=== PATIENT | male | born 1985 | race Two or more races ===

== ENCOUNTER 2017-02-03 11:32 | Inpatient (IN) | payer OTHER ==
[2017-02-03 12:28] VITALS: BMI 25.0
--- NOTE | 2017-02-03 14:45 | HP ---
COWS - Scale Resting Pulse: 0= [place] 80 or Below Sweatin=Flushed/Facial Moisture Restless Observation: 3= Extraneous Movement Pupil Size: 2= Moderately Dilated Bone or Joint Aches: 2= Severe Diffuse Aches Runny Nose/ Eye Tearin= Runny Nose/Eyes GI Upset > 30mins: 3= Vomiting/Diarrhea Tremor Observation: 2= Slight Tremor Visible Yawning Observation: 2= >3x During Session Anxiety or Irritability: 2=Irritable/Anxious Goose Flesh Skin: 0=Smooth Skin COWS Score: 20 CIWA Score - CIWA Score Nausea/Vomitin Muscle Tremors: 3 Anxiety: 3 Agitation: 3 Paroxysmal Sweats: 2 Tacttile Disturbances: 2-Mild Itch/Numbness/Burn Auditory Disturbances: 2-Mild Harshness/Frighten Visual Disturbances: 2-Mild Sensitivity Headache: 2-Mild Admission ROS BHS - HPI Chief Complaint: I NEED HELP TO STOP USING HEROIN,XANAX,CANNABIS Allergies/Adverse Reactions: Allergies Allergy/AdvReac Type Severity Reaction Status Date / Time No Known Allergies Allergy Verified 02/03/17 12:57 History of Present Illness: THIS 31 YEARS OLD MALE WITH HEROIN,XANAX AND CANNABIS DEPENDENCE,SEEK HELP TO STOP USING,LAST DETOX 2011 [facility] STATED LAST USING SUBOXONE 3 WEEKS AGO LONGEST PERIOD OF SOBRIETY Exam Limitations: No Limitations - Ebola screening Have you traveled outside of the country in the last 21 days: No Have you had contact with anyone from an Ebola affected area: No Have you been sick,other than usual withdrawal symptoms: No Do you have a fever: No - Review of Systems Constitutional: Chills, Diaphoresis, Loss of Appetite, Malaise, Night Sweats, Changes in sleep, Weakness, Unintentional Wgt. Loss EENT: reports: Tearing, Nose Congestion Respiratory: reports: No Symptoms reported Cardiac: reports: Palpitations GI: reports: Diarrhea, Nausea, Vomiting, Abdominal cramping : reports: No Symptoms Reported Musculoskeletal: reports: Back Pain, Joint Pain, Muscle Pain, Joint Stiffness Integumentary: reports: Dryness Neuro: reports: Headache, Tremors Endocrine: reports: No Symptoms Reported Hematology: reports: No Symptoms Reported Psychiatric: reports: Anxious, Depressed Other Systems: Reviewed and Negative Patient History - Patient Medical History Hx Anemia: No Hx Asthma: Yes (ON ALBUTEROL INHALER) Hx Chronic Obstructive Pulmonary Disease (COPD): No Hx Cancer: No Hx Cardiac Disorders: No Hx Congestive Heart Failure: No Hx Hypertension: No Hx Hypercholesterolemia: No Hx Pacemaker: No HX Cerebrovascular Accident: No Hx Seizures: No Hx Dementia: No Hx Diabetes: No Hx Gastrointestinal Disorders: No Hx Liver Disease: No Hx Genitourinary Disorders: No Hx Sexually Transmitted Disorders: No Hx Renal Disease (ESRD): No Hx Thyroid Disease: No Hx Human Immunodeficiency Virus (HIV): No (LAST 09/14 NEGATIVE) Hx Hepatitis C: No Hx Depression: Yes (ANXIETY) Hx Suicide Attempt: No Hx Bipolar Disorder: No Hx Schizophrenia: No Other Medical History: NOSUICIDAL.,NO HOMICIDAL - Patient Surgical History Past Surgical History: No Hx Orthopedic Surgery: Yes (SURGERY FOR FX LEFT COLLAR BONE AT AGE OF 23) - PPD History Previous Implant?: Yes Documented Results: Negative w/o proof Implanted On Prior [facility] Admission?: No PPD to be Administered?: Yes - Smoking Cessation Smoking history: Current every day smoker Have you smoked in the past 12 months: Yes Aproximately how many cigarettes per day: 10 Hx Chewing Tobacco Use: No Initiated information on smoking cessation: Yes 'Breaking Loose' booklet given: 02/03/17 - Substance & Tx. History Hx Alcohol Use: No Hx Substance Use: Yes Substance Use Type: Heroin, Marijuana, Tranquilizers - Substances Abused Heroin Route: Injection Frequency: Daily Amount used: 3-10 bags Age of first use: 16 Date of Last Use: 02/02/17 Marijuana/Hashish Frequency: Daily Amount used: 2 blunts Age of first use: 10 Date of Last Use: 02/02/17 Alprazolam (Xanax) Route: Oral Frequency: Daily Amount used: 4 MGS Age of first use: 18 Date of Last Use: 01/31/17 K2 Route: Smoking Frequency: 1-2 times per week Amount used: 10$ Age of first use: 25 Date of Last Use: 02/02/17 Family Disease History - Family Disease History Family History: Denies Family Disease History: [place]: Mother, Other: Father (DSA OVERDOSE) Admission Physical Exam BHS - Vital Signs Vital Signs: Vital Signs - 24 hr 02/03/17 12:23 Temperature 96.4 F L Pulse Rate 80 Respiratory 18 Rate Blood Pressure 95/68 - Physical General Appearance: Yes: Moderate Distress, Tremorous, Irritable, Sweating, Anxious HEENTM: Yes: Normal ENT Inspection, JOSE LUIS, Nasal Congestion Respiratory: Yes: Lungs Clear, Normal Breath Sounds, No Respiratory Distress Neck: Yes: Within Normal Limits, Supple, Trachea in good position Breast: Yes: Within Normal Limits Cardiology: Yes: Within Normal Limits, Regular Rhythm, Regular Rate, S1, S2 Abdominal: Yes: Within Normal Limits, Normal Bowel Sounds, Non Tender, Flat, Soft Genitourinary: Yes: Within Normal Limits Back: Yes: Muscle Spasm Extremities: Yes: Normal Inspection, Normal Range of Motion, Tremors Neurological: Yes: healthcare or medical II-XII NML intact, Alert, Motor Strength 5/5 Integumentary: Yes: Dry Lymphatic: Yes: Within Normal Limits - Diagnostic (1) Opioid dependence Current Visit: Yes Status: Acute (2) Uncomplicated sedative, hypnotic or anxiolytic withdrawal Current Visit: Yes Status: Acute (3) Asthma Current Visit: Yes Status: Acute (4) Cannabis dependence Current Visit: Yes Status: Acute (5) Anxiety and depression Current Visit: Yes Status: Acute (6) Weight loss Current Visit: Yes Status: Acute (7) Fracture of left clavicle Current Visit: Yes Status: Acute Cleared for Admission [facility] - Detox or Rehab [facility] Level of Care: Medically Managed Detox Regimen/Protocol: Methadone [facility] Breath Alcohol Content Breath Alcohol Content: 0 Urine Drug Screen - Results Drug Screen Negative: No Urine Drug Screen Results: THC-Marijuana, NO-Cocaine, OPI-Opiates, PCP- Phencyclidine
[2017-02-03] MEDS ORDERED: LOPERAMIDE HCL 2 MG CAPSULE PO PRN (14:59)
[2017-02-03] MEDS ORDERED: MAGNESIUM CITRATE 300 ML BOTTLE PO PRN (14:59)
[2017-02-03] MEDS ORDERED: IBUPROFEN 400 MG TABLET (FP) PO PRN (14:59)
[2017-02-03] MEDS ORDERED: P-EPHED 60MG/TRIPROLIDI 2.5MG TABLET PO PRN (14:59)
[2017-02-03] MEDS ORDERED: MAG HYDROX/AL HYDROX/SIMETH 30 ML UNIT-DOSE CUP PO PRN (14:59)
[2017-02-03] MEDS ORDERED: MAGNESIUM HYDROX 2400MG/30ML ORAL SUSPENSION 30 ML CUP PO PRN (14:59)
[2017-02-03] MEDS ORDERED: guaiFENesin/D-METHORPHAN HB 10 ML UNIT-DOSE CUPS PO PRN (14:59)
[2017-02-03] MEDS ORDERED: NICOTINE POLACRILEX 2 MG GUM BUC PRN (14:59)
[2017-02-03] MEDS ORDERED: MENTHOL/PHENOL 1 EACH UD MM PRN (14:59)
[2017-02-03] MEDS ORDERED: ALBUTEROL SO4 6.7 GM HFA INHALER IH PRN (15:02)
[2017-02-03] MEDS ORDERED: METHADONE HCL 10 MG TABLET (FOR DETOX USE ONLY) PO ONE ×2 (15:06→23:00)
[2017-02-03] MEDS: diazePAM 5 MG TABLET PO PRN ×2 (15:47→22:46)
[2017-02-03] MEDS: NICOTINE 21 MG/24 HOURS TOPICAL PATCH TD SCH (15:48)
--- NOTE | 2017-02-03 16:14 | CONSULT ---
[facility] Psychiatric Consult - Data Date of interview: 02/03/17 Admission source: [facility] Identifying data: This is 31 years old male with no psychiatric hospitalization history ointoxicated with : Op[ioids, Cannabis, Xanax, Cocaine and PCP Substance Abuse History: Smoking history: Current every day smoker. Have you smoked in the past 12 months: Yes. Aproximately how many cigarettes per day: 10. Hx Chewing Tobacco Use: No. Initiated information on smoking cessation: Yes. 'Breaking Loose' booklet given: 02/03/17. - Substance & Tx. History. Hx Alcohol Use: No. Hx Substance Use: Yes. Substance Use Type: Heroin, Marijuana , Tranquilizers. - Substances Abused. Heroin. Route: Injection. Frequency : Daily. Amount used: 3-10 bags. Age of first use: 16. Date of Last Use: 03/14. Marijuana/Hashish. Frequency: Daily. Amount used: 2 blunts. Age of first use: 10. Date of Last Use: 02/02/17. Alprazolam (Xanax). Route: Oral. Frequency: Daily. Amount used: 4 MGS. Age of first use: 18. Date of Last Use: 01/31/17. K2. Route: Smoking. Frequency: 1-2 times per week. Amount used: 10$. Age of first use: 25. Date of Last Use: 02/02/17 Medical History: Asthma, Weight loss history Psychiatric History: Patient denies past psychiatric history, as per computer there is ahistory of anxiety and depression, history of taking Abilify 5mg poqd Physical/Sexual Abuse/Trauma History: Denies Additional Comment: Refusing medications. Observation. Detox Unit Care Protocol Mental Status Exam - Mental Status Exam Alert and Oriented to: Person Cognitive Function: Fair Patient Appearance: Well Groomed Mood: Suspicious, Anxious Affect: Constricted Patient Behavior: Cooperative, Agitated Speech Pattern: Appropriate Voice Loudness: Mildly Soft/Quiet Thought Process: Goal Oriented Thought Disorder: Being Controlled Hallucinations: Denies Suicidal Ideation: Denies Homicidal Ideation: Denies Insight/Judgement: Fair Sleep: Difficulty falling asleep Appetite: Weight loss Muscle strength/Tone: Normal Gait/Station: Normal Additional Comments: Refusing medications. Observation. Detox Unit Care Protocol Psychiatric Findings - Problem List ([place] 1, 2,3) (1) Anxiety and depression Current Visit: Yes Status: Acute (2) Cannabis dependence Current Visit: Yes Status: Acute (3) Opioid dependence Current Visit: Yes Status: Acute (4) Uncomplicated sedative, hypnotic or anxiolytic withdrawal Current Visit: Yes Status: Acute (5) PCP (phencyclidine) abuse Current Visit: Yes Status: Acute (6) Cocaine abuse Current Visit: Yes Status: Acute (7) Drug-induced mood disorder Current Visit: Yes Status: Acute - Initial Treatment Plan Initial Treatment Plan: Refusing medications. Observation. Detox Unit Care Protocol
[2017-02-03 21:13] LABS: URINE APPEARANCE CLEAR; URINE BILIRUBIN NEGATIVE (NEGATIVE); URINE BLOOD NEGATIVE (NEGATIVE); URINE COLOR YELLOW; URINE GLUCOSE (UA) NEGATIVE (NEGATIVE); URINE KETONE NEGATIVE (NEGATIVE); URINE LEUK ESTERASE NEGATIVE (NEGATIVE); URINE NITRITE NEGATIVE (NEGATIVE); URINE PROTEIN NEGATIVE (NEGATIVE); URINE UROBILINOGEN NEGATIVE E.U./dl (0.2-1.0)
[2017-02-03] MEDS: diphenhydrAMINE HCL 50 MG CAPSULE PO PRN (22:43)
[2017-02-03] MEDS: THIAMINE HCL 100 MG TABLET (FP) PO SCH (22:43)
[2017-02-04] MEDS: diazePAM 5 MG TABLET PO PRN ×3 (06:09→18:41)
[2017-02-04 09:48] LABS: MCH 22.9 pg (25.7-33.7); MCHC 31.8 g/dl (32.0-35.9); MEAN PLT VOLUME 8.9 fl (7.5-11.1); PLATELET COUNT 207 K/MM3 (134-434); RDW 14.8 % (11.9-15.9); WHITE BLOOD COUNT 3.9 K/mm3 (4.0-10.0)
[2017-02-04] MEDS ORDERED: METHADONE HCL 10 MG TABLET (FOR DETOX USE ONLY) PO ONE (10:00)
[2017-02-04 10:13] LABS: ALBUMIN 4.2 g/dl (3.4-5.0); ALK PHOS 67 U/L (45-117); ANION GAP 7 (8-16); BILIRUBIN,TOTAL 0.6 mg/dL (0.2-1.0); CALCIUM 9.8 mg/dL (8.5-10.1); CO2 31 mmol/L (21-32); COCKROFT - GAULT 118.61; CREATININE 1.1 mg/dL (0.7-1.3); GLUCOSE,RANDOM 95 mg/dL (74-106); SGOT/AST 18 U/L (15-37); SGPT/ALT 21 U/L (12-78); TOT PROT 7.3 g/dl (6.4-8.2)
--- NOTE | 2017-02-04 10:19 | EKG ---
Test Reason : Blood Pressure : / mmHG Vent. Rate : 052 BPM Atrial Rate : 052 BPM P-R Int : 156 ms QRS Dur : 094 ms QT Int : 438 ms P-R-T Axes : 056 081 057 degrees QTc Int : 407 ms SINUS BRADYCARDIA WITH SINUS ARRHYTHMIA OTHERWISE NORMAL ECG NO PREVIOUS ECGS AVAILABLE Confirmed by CHEMA GUEVARA MD ([id number]) on 02/04/2017 10:18:40 AM Referred By: Confirmed By:CHEMA GUEVARA MD
[2017-02-04] MEDS: PRENATAL VITAMINS W/ FOLIC ACID TABLET (FP) PO SCH (10:35)
[2017-02-04] MEDS: NICOTINE 21 MG/24 HOURS TOPICAL PATCH TD SCH (10:35)
[2017-02-04] MEDS ORDERED: ONDANSETRON *ODT* 4 MG TABLET SL PRN (13:12)
[2017-02-04] MEDS ORDERED: ONDANSETRON *ODT* 4 MG TABLET SL ONE (14:00)
--- NOTE | 2017-02-04 14:55 | PN ---
BHS COWS - Scale Resting Pulse: 0= [place] 80 or Below Sweatin=Flushed/Facial Moisture Restless Observation: 1= Difficult to Sit Still Pupil Size: 0= Normal to Room Light Bone or Joint Aches: 2= Severe Diffuse Aches Runny Nose/ Eye Tearin= Runny Nose/Eyes GI Upset > 30mins: 2= Nausea/Diarrhea Tremor Observation of Outstretched Hands: 2= Slight Tremor Visible Yawning Observation: 1= 1-2x During Session Anxiety or Irritability: 2=Irritable/Anxious Goose Flesh Skin: 0=Smooth Skin COWS Score: 14 BHS Progress Note (SOAP) Subjective: Anxiety,tremors,sweating,nausea,body aches,interrupted sleep. Objective: 02/04/17 14:54 Vital Signs - 8 hr 02/04/17 02/04/17 10:35 10:38 Temperature 98.3 F 98.3 F Pulse Rate 72 72 Respiratory 18 18 Rate Blood Pressure 121/79 121/79 Laboratory Tests 02/03/17 02/04/17 02/04/17 20:30 06:00 06:00 WBC 3.9 L RBC 5.68 H Hgb 13.0 Hct 40.9 MCV 72.0 L MCHC 31.8 L RDW 14.8 Plt Count 207 MPV 8.9 Sodium 142 Potassium 4.2 Chloride 104 Carbon Dioxide 31 Anion Gap 7 L BUN 20 H Creatinine 1.1 Creat Clearance w eGFR > 60 Random Glucose 95 Calcium 9.8 Total Bilirubin 0.6 AST 18 ALT 21 Alkaline Phosphatase 67 Total Protein 7.3 Albumin 4.2 Urine Color Yellow Urine Appearance Clear Urine pH 6.0 Ur Specific [place] 1.025 Urine Protein Negative Urine Glucose (UA) Negative Urine Ketones Negative Urine Blood Negative Urine Nitrite Negative Urine Bilirubin Negative Urine Urobilinogen Negative Ur Leukocyte Esterase Negative RPR Titer 02/04/17 06:00 WBC RBC Hgb Hct MCV MCHC RDW Plt Count MPV Sodium Potassium Chloride Carbon Dioxide Anion Gap BUN Creatinine Creat Clearance w eGFR Random Glucose Calcium Total Bilirubin AST ALT Alkaline Phosphatase Total Protein Albumin Urine Color Urine Appearance Urine pH Ur Specific [place] Urine Protein Urine Glucose (UA) Urine Ketones Urine Blood Urine Nitrite Urine Bilirubin Urine Urobilinogen Ur Leukocyte Esterase RPR Titer Nonreactive labs noted Assessment: 02/04/17 14:54 Withdrawal sx. Plan: Continue detox
[2017-02-04] MEDS: ACETAMINOPHEN 325 MG TABLET (FP) PO PRN (20:05)
[2017-02-04] MEDS: THIAMINE HCL 100 MG TABLET (FP) PO SCH (22:32)
[2017-02-05] MEDS: diazePAM 5 MG TABLET PO PRN ×3 (05:34→22:15)
[2017-02-05] MEDS: ACETAMINOPHEN 325 MG TABLET (FP) PO PRN ×3 (05:35→23:05)
[2017-02-05] MEDS ORDERED: METHADONE HCL 5 MG TABLET (FOR DETOX USE ONLY) PO ONE (10:00)
[2017-02-05] MEDS: NICOTINE 21 MG/24 HOURS TOPICAL PATCH TD SCH (10:23)
[2017-02-05] MEDS: PRENATAL VITAMINS W/ FOLIC ACID TABLET (FP) PO SCH (10:23)
--- NOTE | 2017-02-05 19:23 | PN ---
S CIWA - CIWA Score Nausea/Vomitin Muscle Tremors: 4-Moderate,w/Arms Extend Anxiety: 2 Agitation: 0-Normal Activity Paroxysmal Sweats: No Perspiration Orientation: 2-Disoriented Date<2 days Tacttile Disturbances: 0-None Auditory Disturbances: 0-None Visual Disturbances: 2-Mild Sensitivity Headache: 2-Mild CIWA-Ar Total Score: 17 BHS COWS - Scale Resting Pulse: 0= [place] 80 or Below Sweatin=Flushed/Facial Moisture Restless Observation: 0= Sits Still Pupil Size: 0= Normal to Room Light Bone or Joint Aches: 2= Severe Diffuse Aches Runny Nose/ Eye Tearin= Nasal Congestion GI Upset > 30mins: 3= Vomiting/Diarrhea Tremor Observation of Outstretched Hands: 2= Slight Tremor Visible Yawning Observation: 2= >3x During Session Anxiety or Irritability: 2=Irritable/Anxious Goose Flesh Skin: 0=Smooth Skin COWS Score: 14 [facility] Progress Note (SOAP) Subjective: Vomiting, Stomach Cramping, Interrupted Sleep, Tremors, Body Aches. Objective: PT. A & O X 2 (DISORIENTED ABOUT DAY DATE). NO ACUTE DISTRESS. 02/05/17 19:21 Vital Signs Temperature 98.2 F 02/05/17 13:08 Pulse Rate 53 L 02/05/17 13:08 Respiratory Rate 18 02/05/17 13:08 Blood Pressure 110/72 02/05/17 13:08 O2 Sat by Pulse Oximetry (%) Laboratory Tests 02/03/17 02/04/17 02/04/17 20:30 06:00 06:00 WBC 3.9 L RBC 5.68 H Hgb 13.0 Hct 40.9 MCV 72.0 L MCHC 31.8 L RDW 14.8 Plt Count 207 MPV 8.9 Sodium 142 Potassium 4.2 Chloride 104 Carbon Dioxide 31 Anion Gap 7 L BUN 20 H Creatinine 1.1 Creat Clearance w eGFR > 60 Random Glucose 95 Calcium 9.8 Total Bilirubin 0.6 AST 18 ALT 21 Alkaline Phosphatase 67 Total Protein 7.3 Albumin 4.2 Urine Color Yellow Urine Appearance Clear Urine pH 6.0 Ur Specific [place] 1.025 Urine Protein Negative Urine Glucose (UA) Negative Urine Ketones Negative Urine Blood Negative Urine Nitrite Negative Urine Bilirubin Negative Urine Urobilinogen Negative Ur Leukocyte Esterase Negative RPR Titer 02/04/17 06:00 WBC RBC Hgb Hct MCV MCHC RDW Plt Count MPV Sodium Potassium Chloride Carbon Dioxide Anion Gap BUN Creatinine Creat Clearance w eGFR Random Glucose Calcium Total Bilirubin AST ALT Alkaline Phosphatase Total Protein Albumin Urine Color Urine Appearance Urine pH Ur Specific [place] Urine Protein Urine Glucose (UA) Urine Ketones Urine Blood Urine Nitrite Urine Bilirubin Urine Urobilinogen Ur Leukocyte Esterase RPR Titer Nonreactive LABS NOTED. Assessment: 02/05/17 19:22 WITHDRAWAL SYMPTOMS. Plan: CONTINUE DETOX.
[2017-02-05] MEDS: THIAMINE HCL 100 MG TABLET (FP) PO SCH (22:15)
[2017-02-05] MEDS: diphenhydrAMINE HCL 50 MG CAPSULE PO PRN (22:15)
[2017-02-06] MEDS: diazePAM 5 MG TABLET PO PRN (05:56)
[2017-02-06] MEDS: ACETAMINOPHEN 325 MG TABLET (FP) PO PRN ×2 (05:57→22:14)
[2017-02-06] MEDS ORDERED: METHADONE HCL 5 MG TABLET (FOR DETOX USE ONLY) PO ONE (10:00)
[2017-02-06] MEDS: PRENATAL VITAMINS W/ FOLIC ACID TABLET (FP) PO SCH (10:08)
[2017-02-06] MEDS: NICOTINE 21 MG/24 HOURS TOPICAL PATCH TD SCH (10:08)
[2017-02-06] MEDS: CYCLOBENZAPRINE HCL 10 MG TABLET (FP) PO PRN ×2 (10:10→22:14)
[2017-02-06] MEDS ORDERED: TRIMETHOBENZAMIDE HCL 200MG/2ML INJ IM ONE (10:21)
--- NOTE | 2017-02-06 15:22 | PN ---
BHS Progress Note (SOAP) Subjective: Back spasm, nausea, vomiting (vomited x 4 in garbage this AM as per patient), anxious, restless, interrupted sleep Objective: 02/06/17 15:19 Last Vital Signs Temp Pulse Resp BP Pulse Ox 98.7 F 66 18 120/77 02/06/17 09:52 02/06/17 09:52 02/06/17 09:52 02/06/17 09:52 Laboratory Tests 02/03/17 02/04/17 02/04/17 20:30 06:00 06:00 WBC 3.9 L RBC 5.68 H Hgb 13.0 Hct 40.9 MCV 72.0 L MCHC 31.8 L RDW 14.8 Plt Count 207 MPV 8.9 Sodium 142 Potassium 4.2 Chloride 104 Carbon Dioxide 31 Anion Gap 7 L BUN 20 H Creatinine 1.1 Creat Clearance w eGFR > 60 Random Glucose 95 Calcium 9.8 Total Bilirubin 0.6 AST 18 ALT 21 Alkaline Phosphatase 67 Total Protein 7.3 Albumin 4.2 Urine Color Yellow Urine Appearance Clear Urine pH 6.0 Ur Specific [place] 1.025 Urine Protein Negative Urine Glucose (UA) Negative Urine Ketones Negative Urine Blood Negative Urine Nitrite Negative Urine Bilirubin Negative Urine Urobilinogen Negative Ur Leukocyte Esterase Negative RPR Titer 02/04/17 06:00 WBC RBC Hgb Hct MCV MCHC RDW Plt Count MPV Sodium Potassium Chloride Carbon Dioxide Anion Gap BUN Creatinine Creat Clearance w eGFR Random Glucose Calcium Total Bilirubin AST ALT Alkaline Phosphatase Total Protein Albumin Urine Color Urine Appearance Urine pH Ur Specific [place] Urine Protein Urine Glucose (UA) Urine Ketones Urine Blood Urine Nitrite Urine Bilirubin Urine Urobilinogen Ur Leukocyte Esterase RPR Titer Nonreactive Labs noted Assessment: 02/06/17 15:20 Withdrawal symptoms Plan: Continue detox, tigan 200mg IM x 1 for persistent vomiting, encouraged to drink more water, water pitcher ordered, flexeril 10mg PO TID PRN muscle spasm
[2017-02-06] MEDS: diphenhydrAMINE HCL 50 MG CAPSULE PO PRN (22:13)
[2017-02-06] MEDS: THIAMINE HCL 100 MG TABLET (FP) PO SCH (22:13)
[2017-02-07] MEDS: ACETAMINOPHEN 325 MG TABLET (FP) PO PRN ×3 (05:58→22:23)
[2017-02-07] MEDS: CYCLOBENZAPRINE HCL 10 MG TABLET (FP) PO PRN ×2 (05:58→22:24)
[2017-02-07] MEDS ORDERED: METHADONE HCL 10 MG TABLET (FOR DETOX USE ONLY) PO ONE (10:00)
[2017-02-07] MEDS: PRENATAL VITAMINS W/ FOLIC ACID TABLET (FP) PO SCH (10:15)
[2017-02-07] MEDS: NICOTINE 21 MG/24 HOURS TOPICAL PATCH TD SCH (10:15)
--- NOTE | 2017-02-07 14:07 | PN ---
BHS Progress Note (SOAP) Subjective: Sweating,interrupted sleep,restless. Objective: 02/07/17 14:06 Vital Signs - 8 hr 02/07/17 02/07/17 02/07/17 06:22 09:42 13:40 Temperature 97.6 F 96.6 F L 97.8 F Pulse Rate 57 L 69 77 Respiratory 18 18 18 Rate Blood Pressure 121/82 122/79 109/71 Laboratory Tests 02/03/17 02/04/17 02/04/17 20:30 06:00 06:00 WBC 3.9 L RBC 5.68 H Hgb 13.0 Hct 40.9 MCV 72.0 L MCHC 31.8 L RDW 14.8 Plt Count 207 MPV 8.9 Sodium 142 Potassium 4.2 Chloride 104 Carbon Dioxide 31 Anion Gap 7 L BUN 20 H Creatinine 1.1 Creat Clearance w eGFR > 60 Random Glucose 95 Calcium 9.8 Total Bilirubin 0.6 AST 18 ALT 21 Alkaline Phosphatase 67 Total Protein 7.3 Albumin 4.2 Urine Color Yellow Urine Appearance Clear Urine pH 6.0 Ur Specific [place] 1.025 Urine Protein Negative Urine Glucose (UA) Negative Urine Ketones Negative Urine Blood Negative Urine Nitrite Negative Urine Bilirubin Negative Urine Urobilinogen Negative Ur Leukocyte Esterase Negative RPR Titer 02/04/17 06:00 WBC RBC Hgb Hct MCV MCHC RDW Plt Count MPV Sodium Potassium Chloride Carbon Dioxide Anion Gap BUN Creatinine Creat Clearance w eGFR Random Glucose Calcium Total Bilirubin AST ALT Alkaline Phosphatase Total Protein Albumin Urine Color Urine Appearance Urine pH Ur Specific [place] Urine Protein Urine Glucose (UA) Urine Ketones Urine Blood Urine Nitrite Urine Bilirubin Urine Urobilinogen Ur Leukocyte Esterase RPR Titer Nonreactive labs noted Assessment: 02/07/17 14:06 Withdrawal sx. Plan: Continue detox
[2017-02-07] MEDS: diphenhydrAMINE HCL 50 MG CAPSULE PO PRN (22:23)
[2017-02-07] MEDS: THIAMINE HCL 100 MG TABLET (FP) PO SCH (22:23)
[2017-02-08] MEDS: CYCLOBENZAPRINE HCL 10 MG TABLET (FP) PO PRN (05:58)
[2017-02-08] MEDS: ACETAMINOPHEN 325 MG TABLET (FP) PO PRN (05:59)
[2017-02-08] MEDS ORDERED: METHADONE HCL 5 MG TABLET (FOR DETOX USE ONLY) PO ONE (06:00)
[2017-02-08 09:30] VITALS: BP 123/78; PULSE 60; TEMP 97.1
--- NOTE | 2017-02-08 11:14 | DS ---
[facility] Detox Discharge Summary Admission Date: 02/03/17 Discharge Date: 02/08/17 - History Present History: Alcohol Dependence, Opioid Dependence, Sedative Dependence, Pcp Dependence Additional Comments: DETOX COMPLETED.ALERT O X 3. NAD. Pertinent Past History: ASTHMA FX LEFT CLAVICLE WT LOSS - Physical Exam Results Vital Signs: Vital Signs Temperature 97.1 F L 02/08/17 09:29 Pulse Rate 60 02/08/17 09:29 Respiratory Rate 18 02/08/17 09:29 Blood Pressure 123/78 02/08/17 09:29 O2 Sat by Pulse Oximetry (%) Pertinent Admission Physical Exam Findings: WITHDRAWAL SX Laboratory Last Values WBC 3.9 K/mm3 (4.0-10.0) L 02/04/17 06:00 RBC 5.68 M/mm3 (4.00-5.60) H 02/04/17 06:00 Hgb 13.0 GM/dL (11.7-16.9) 02/04/17 06:00 Hct 40.9 % (35.4-49) 02/04/17 06:00 MCV 72.0 fl (80-96) L 02/04/17 06:00 MCHC 31.8 g/dl (32.0-35.9) L 02/04/17 06:00 RDW 14.8 % (11.9-15.9) 02/04/17 06:00 Plt Count 207 K/MM3 (134-434) 02/04/17 06:00 MPV 8.9 fl (7.5-11.1) 02/04/17 06:00 Sodium 142 mmol/L (136-145) 02/04/17 06:00 Potassium 4.2 mmol/L (3.5-5.1) 02/04/17 06:00 Chloride 104 mmol/L (98-107) 02/04/17 06:00 Carbon Dioxide 31 mmol/L (21-32) 02/04/17 06:00 Anion Gap 7 (8-16) L 02/04/17 06:00 BUN 20 mg/dL (7-18) H 02/04/17 06:00 Creatinine 1.1 mg/dL (0.7-1.3) 02/04/17 06:00 Creat Clearance w eGFR > 60 (>60) 02/04/17 06:00 Random Glucose 95 mg/dL (74-106) 02/04/17 06:00 Calcium 9.8 mg/dL (8.5-10.1) 02/04/17 06:00 Total Bilirubin 0.6 mg/dL (0.2-1.0) 02/04/17 06:00 AST 18 U/L (15-37) 02/04/17 06:00 ALT 21 U/L (12-78) 02/04/17 06:00 Alkaline Phosphatase 67 U/L (45-117) 02/04/17 06:00 Total Protein 7.3 g/dl (6.4-8.2) 02/04/17 06:00 Albumin 4.2 g/dl (3.4-5.0) 02/04/17 06:00 Urine Color Yellow 02/03/17 20:30 Urine Appearance Clear 02/03/17 20:30 Urine pH 6.0 (5.0-8.0) 02/03/17 20:30 Ur Specific [place] 1.025 (1.005-1.025) 02/03/17 20:30 Urine Protein Negative (NEGATIVE) 02/03/17 20:30 Urine Glucose (UA) Negative (NEGATIVE) 02/03/17 20:30 Urine Ketones Negative (NEGATIVE) 02/03/17 20:30 Urine Blood Negative (NEGATIVE) 02/03/17 20:30 Urine Nitrite Negative (NEGATIVE) 02/03/17 20:30 Urine Bilirubin Negative (NEGATIVE) 02/03/17 20:30 Urine Urobilinogen Negative E.U./dl (0.2-1.0) 02/03/17 20:30 Ur Leukocyte Esterase Negative (NEGATIVE) 02/03/17 20:30 RPR Titer Nonreactive (NONREACTIVE) 02/04/17 06:00 - Treatment Hospital Course: Detox Protocol Followed, Detoxed Safely, Responded well, Discharged Condition Good Patient has Accepted a Rehab Referral to: PT REFUSED BUT HAS ALTERNATE CHOICE- [facility] - Medication Discharge Medications: Ambulatory Orders Albuterol Sulfate Inhaler - [Ventolin Hfa Inhaler -] 2 inh PO Q4H PRN 02/03/17 Aripiprazole [Abilify -] 5 mg PO DAILY 02/03/17 Buprenorphine HCl/Naloxone HCl [Suboxone 8 mg-2 mg Sl Tablets] 1.5 each SL DAILY 02/03/17 Clonazepam [Klonopin] 1 mg PO HS 02/03/17 - Diagnosis (1) Asthma Status: Chronic Qualifiers: Asthma severity: mild intermittent Asthma complication type: uncomplicated Qualified Code(s): J45.20 - Mild intermittent asthma, uncomplicated (2) Drug-induced mood disorder Status: Acute (3) Cannabis dependence Status: Acute (4) PCP (phencyclidine) abuse Status: Acute (5) Weight loss Status: Acute (6) Opioid dependence with withdrawal Status: Acute - AMA Did Patient Leave Against Medical Advice: No
== END 2017-02-08 09:20 | disposition home or self-care (01) | DRG 773 ==
LOC: YASAS 11:32 → Y3N 13:59
PROVIDERS: ADMIT Internal Medicine; ATTEND Internal Medicine
PROC: HZ2ZZZZ Detoxification Services for Substance Abuse Treatment (ICD-10-PCS; principal; 2017-02-03)
DX: F11.23 Opioid dependence with withdrawal (principal); F13.230 Sedative, hypnotic or anxiolytic dependence with withdrawal, uncomplicated; F12.20 Cannabis dependence, uncomplicated; F16.10 Hallucinogen abuse, uncomplicated; F14.10 Cocaine abuse, uncomplicated; F41.8 Other specified anxiety disorders; F19.24 Other psychoactive substance dependence with psychoactive substance-induced mood disorder; J45.20 Mild intermittent asthma, uncomplicated; Z87.898 Personal history of other specified conditions
CPT/HCPCS: 36415; 80053; 81003; 85027; 86593; 93005; 93010

== ENCOUNTER 2018-01-02 19:51 | Inpatient (IN) | payer OTHER ==
[2018-01-02 19:59] VITALS: BMI 23.1
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
[2018-01-03] MEDS ORDERED: MAGNESIUM CITRATE 300 ML BOTTLE PO PRN (00:40)
[2018-01-03] MEDS ORDERED: MAG HYDROX/AL HYDROX/SIMETH 30 ML UNIT-DOSE CUP PO PRN (00:40)
[2018-01-03] MEDS ORDERED: NICOTINE POLACRILEX 2 MG GUM BC PRN (00:40)
[2018-01-03] MEDS ORDERED: LOPERAMIDE HCL 2 MG CAPSULE PO PRN (00:40)
[2018-01-03] MEDS ORDERED: ACETAMINOPHEN 325 MG TABLET (FP) PO PRN (00:40)
[2018-01-03] MEDS ORDERED: MAGNESIUM HYDROX 2400MG/30ML ORAL SUSPENSION 30 ML CUP PO PRN (00:40)
[2018-01-03] MEDS ORDERED: IBUPROFEN 400 MG TABLET (FP) PO PRN (00:40)
[2018-01-03] MEDS ORDERED: P-EPHED 60MG/TRIPROLIDI 2.5MG TABLET PO PRN (00:40)
[2018-01-03] MEDS ORDERED: METHADONE HCL 10 MG TABLET (FOR DETOX USE ONLY) PO ONE ×2 (00:40→23:00)
[2018-01-03] MEDS ORDERED: diazePAM 5 MG TABLET PO ONE (00:40)
[2018-01-03] MEDS ORDERED: MENTHOL/PHENOL 1 EACH UD MM PRN (00:40)
[2018-01-03] MEDS ORDERED: guaiFENesin/D-METHORPHAN HB 10 ML UNIT-DOSE CUPS PO PRN (00:40)
[2018-01-03] MEDS ORDERED: diazePAM 5 MG TABLET PO PRN (00:40)
[2018-01-03] MEDS: diazePAM 5 MG TABLET PO SCH ×2 (05:35→13:55)
[2018-01-03] MEDS ORDERED: METHADONE HCL 40 MG DISPERSABLE TABLET PO SCH (09:15)
[2018-01-03 09:51] LABS: URINE APPEARANCE CLEAR; URINE BILIRUBIN NEGATIVE (<2.0 mg/dL); URINE COLOR YELLOW; URINE GLUCOSE (UA) NEGATIVE (NEGATIVE); URINE KETONE NEGATIVE (NEGATIVE); URINE LEUK ESTERASE TRACE (NEGATIVE); URINE NITRITE NEGATIVE (NEGATIVE); URINE PROTEIN NEGATIVE (NEGATIVE); URINE UROBILINOGEN 4.0 E.U/dl mg/dL (0.2-1.0)
[2018-01-03 09:54] LABS: HEMATOCRIT 36.3 % (35.4-49); HEMOGLOBIN 11.9 GM/dL (11.7-16.9); MCH 23.6 pg (25.7-33.7); MCHC 32.8 g/dl (32.0-35.9); MEAN CELL VOLUME 71.8 fl (80-96); MEAN PLT VOLUME 9.1 fl (7.5-11.1); PLATELET COUNT 211 K/MM3 (134-434); RBC 5.05 M/mm3 (4.00-5.60); RDW 16.5 % (11.9-15.9); WHITE BLOOD COUNT 4.9 K/mm3 (4.0-10.0)
[2018-01-03] MEDS ORDERED: PRENATAL VITAMINS W/ FOLIC ACID TABLET (FP) PO SCH (10:00)
[2018-01-03] MEDS ORDERED: NICOTINE 14 MG/24 HOURS TOPICAL PATCH TD SCH (10:00)
[2018-01-03 10:02] LABS: CHLORIDE 105 mmol/L (98-107); SODIUM 142 mmol/L (136-145)
[2018-01-03 10:09] LABS: ALBUMIN 3.3 g/dl (3.4-5.0); ALK PHOS 59 U/L (45-117); ANION GAP 5 (8-16); BILIRUBIN,TOTAL 0.4 mg/dL (0.2-1.0); BLOOD UREA NITROGEN 14 mg/dL (7-18); CALCIUM 8.6 mg/dL (8.5-10.1); CO2 32 mmol/L (21-32); GLUCOSE,RANDOM 90 mg/dL (74-106); SGOT/AST 16 U/L (15-37); SGPT/ALT 16 U/L (12-78); TOT PROT 5.9 g/dl (6.4-8.2)
[2018-01-03 10:14] LABS: EPI CELLS RARE /HPF (FEW); URINE MUCUS RARE
--- NOTE | 2018-01-03 11:56 | PN ---
[facility] CIWA - CIWA Score Nausea/Vomitin-No Nausea/No Vomiting Muscle Tremors: 3 Anxiety: 4-Mod. Anxious/Guarded Agitation: 1-Slight > Activity Paroxysmal Sweats: No Perspiration Orientation: 0-Oriented Tacttile Disturbances: 3-Moderate Itch/Numb/Burn Auditory Disturbances: 2-Mild Harshness/Frighten Visual Disturbances: 3-Moderate Sensitivity Headache: 0-None Present CIWA-Ar Total Score: 16 S COWS - Scale Resting Pulse: 0= [place] 80 or Below Sweatin= Chills/Flushing S Progress Note (SOAP) Subjective: Fatigue, Tremors, Body Aches. Objective: PATIENT A & O X 3. NO ACUTE DISTRESS. 01/03/18 11:59 Vital Signs Temperature 96.8 F L 01/03/18 10:05 Pulse Rate 59 L 01/03/18 10:05 Respiratory Rate 20 01/03/18 10:05 Blood Pressure 102/62 01/03/18 10:05 O2 Sat by Pulse Oximetry (%) Laboratory Tests 01/03/18 01/03/18 01/03/18 07:00 07:30 07:30 WBC 4.9 RBC 5.05 Hgb 11.9 Hct 36.3 MCV 71.8 L MCH 23.6 L MCHC 32.8 RDW 16.5 H D Plt Count 211 MPV 9.1 Sodium 142 Potassium 4.0 Chloride 105 Carbon Dioxide 32 Anion Gap 5 L BUN 14 D Creatinine 1.0 Creat Clearance w eGFR > 60 Random Glucose 90 Calcium 8.6 Total Bilirubin 0.4 D AST 16 ALT 16 D Alkaline Phosphatase 59 Total Protein 5.9 L Albumin 3.3 L D Urine Color Yellow Urine Appearance Clear Urine pH 7.0 Ur Specific [place] 1.024 Urine Protein Negative Urine Glucose (UA) Negative Urine Ketones Negative Urine Blood Negative Urine Nitrite Negative Urine Bilirubin Negative Urine Urobilinogen 4.0 e.u/dl Ur Leukocyte Esterase Trace Urine WBC (Auto) 1 Urine RBC (Auto) <1 Ur Epithelial Cells Rare Urine Mucus Rare LABS NOTED. RPR RESULT PENDING. 01/03/18 12:00 Assessment: 01/03/18 11:59 WITHDRAWAL SYMPTOMS. Plan: CONTINUE DETOX. INCREASE DAILY PO FLUID INTAKE.
[2018-01-03 13:32] VITALS: BP 120/76; PULSE 73; TEMP 97.4
--- NOTE | 2018-01-03 13:51 | EKG ---
Test Reason : Blood Pressure : / mmHG Vent. Rate : 052 BPM Atrial Rate : 052 BPM P-R Int : 166 ms QRS Dur : 092 ms QT Int : 448 ms P-R-T Axes : 062 077 064 degrees QTc Int : 416 ms SINUS BRADYCARDIA OTHERWISE NORMAL ECG WHEN COMPARED WITH ECG OF 03-FEB-2017 14:51, NO SIGNIFICANT CHANGE WAS FOUND Confirmed by MD Gretel, Solomon ([id number]) on 01/03/2018 1:50:32 PM Referred By: Tyrone Mcmahon Confirmed By:Solomon Majano MD
--- NOTE | 2018-01-03 14:15 | DS ---
[facility] Detox Discharge Summary Admission Date: 01/02/18 Discharge Date: 01/03/18 - History Present History: Cannabis Dependence, Cocaine Dependence, Opioid Dependence, Sedative Dependence, MMTP Additional Comments: PATIENT DOES NOT WISH TO STAY TO COMPLETE DETOX REGIMEN. RISKS OF LEAVING DETOX UNIT AGAINST MEDICAL ADVICE AND PRIOR TO COMPLETION OF DETOX REGIMEN EXPLAINED TO PATIENT. PATIENT ADVISED TO GO IMMEDIATELY TO NEAREST ER SHOULD ANY INTOLERABLE DETOX SYMPTOMS DEVELOP AT ANY TIME. PATIENT LEFT DETOX UNIT IN STABLE MEDICAL CONDITION. Pertinent Past History: Asthma, MMTP, Anxiety, Depression. - Physical Exam Results Vital Signs: Vital Signs Temperature 97.4 F L 01/03/18 13:32 Pulse Rate 73 01/03/18 13:32 Respiratory Rate 20 01/03/18 13:32 Blood Pressure 120/76 01/03/18 13:32 O2 Sat by Pulse Oximetry (%) Pertinent Admission Physical Exam Findings: WITHDRAWAL SYMPTOMS. Laboratory Tests 01/03/18 01/03/18 01/03/18 07:00 07:30 07:30 WBC 4.9 RBC 5.05 Hgb 11.9 Hct 36.3 MCV 71.8 L MCH 23.6 L MCHC 32.8 RDW 16.5 H D Plt Count 211 MPV 9.1 Sodium 142 Potassium 4.0 Chloride 105 Carbon Dioxide 32 Anion Gap 5 L BUN 14 D Creatinine 1.0 Creat Clearance w eGFR > 60 Random Glucose 90 Calcium 8.6 Total Bilirubin 0.4 D AST 16 ALT 16 D Alkaline Phosphatase 59 Total Protein 5.9 L Albumin 3.3 L D Urine Color Yellow Urine Appearance Clear Urine pH 7.0 Ur Specific [place] 1.024 Urine Protein Negative Urine Glucose (UA) Negative Urine Ketones Negative Urine Blood Negative Urine Nitrite Negative Urine Bilirubin Negative Urine Urobilinogen 4.0 e.u/dl Ur Leukocyte Esterase Trace Urine WBC (Auto) 1 Urine RBC (Auto) <1 Ur Epithelial Cells Rare Urine Mucus Rare RPR Titer 01/03/18 07:30 WBC RBC Hgb Hct MCV MCH MCHC RDW Plt Count MPV Sodium Potassium Chloride Carbon Dioxide Anion Gap BUN Creatinine Creat Clearance w eGFR Random Glucose Calcium Total Bilirubin AST ALT Alkaline Phosphatase Total Protein Albumin Urine Color Urine Appearance Urine pH Ur Specific [place] Urine Protein Urine Glucose (UA) Urine Ketones Urine Blood Urine Nitrite Urine Bilirubin Urine Urobilinogen Ur Leukocyte Esterase Urine WBC (Auto) Urine RBC (Auto) Ur Epithelial Cells Urine Mucus RPR Titer Nonreactive LABS NOTED. - Treatment Hospital Course: Detoxed Safely - Diagnosis (1) Anxiety and depression Current Visit: Yes Status: Chronic (2) Cannabis dependence Current Visit: Yes Status: Chronic (3) Cocaine dependence Current Visit: Yes Status: Chronic Qualifiers: Substance use status: uncomplicated Qualified Code(s): F14.20 - Cocaine dependence, uncomplicated (4) Uncomplicated sedative, hypnotic or anxiolytic withdrawal Current Visit: Yes Status: Acute (5) Asthma Current Visit: Yes Status: Chronic Qualifiers: Asthma severity: mild Asthma persistence: intermittent Asthma complication type: uncomplicated Qualified Code(s): J45.20 - Mild intermittent asthma, uncomplicated (6) Opioid dependence, uncomplicated Current Visit: Yes Status: Chronic (7) Methadone maintenance therapy patient Current Visit: Yes Status: Chronic - AMA Did Patient Leave Against Medical Advice: Yes (PATIENT DID NOT WISH TO STAY TO COMPLETE DETOX REGIMEN.)
[2018-01-03] MEDS ORDERED: THIAMINE HCL 100 MG TABLET (FP) PO SCH (22:00)
[2018-01-03] MEDS ORDERED: MELATONIN 5 MG TABLETS PO PRN (22:00)
[2018-01-04] MEDS ORDERED: METHADONE HCL 10 MG TABLET (FOR DETOX USE ONLY) PO SCH (10:00)
[2018-01-05] MEDS ORDERED: diazePAM 5 MG TABLET PO SCH (10:00)
[2018-01-05] MEDS ORDERED: METHADONE HCL 5 MG TABLET (FOR DETOX USE ONLY) PO SCH (10:00)
[2018-01-07] MEDS ORDERED: diazePAM 5 MG TABLET PO SCH (10:00)
[2018-01-07] MEDS ORDERED: METHADONE HCL 10 MG TABLET (FOR DETOX USE ONLY) PO SCH (10:00)
[2018-01-08] MEDS ORDERED: METHADONE HCL 5 MG TABLET (FOR DETOX USE ONLY) PO SCH (06:00)
== END 2018-01-03 14:16 | disposition left against medical advice (07) | DRG 770 ==
LOC: YASAS 19:51 → Y3N 21:41
PROVIDERS: ADMIT Internal Medicine; ATTEND Internal Medicine
PROC: HZ2ZZZZ Detoxification Services for Substance Abuse Treatment (ICD-10-PCS; principal; 2018-01-02)
DX: F11.23 Opioid dependence with withdrawal (principal); F13.230 Sedative, hypnotic or anxiolytic dependence with withdrawal, uncomplicated; F14.20 Cocaine dependence, uncomplicated; F12.20 Cannabis dependence, uncomplicated; F41.8 Other specified anxiety disorders; J45.20 Mild intermittent asthma, uncomplicated; Z59.0 Homelessness
CPT/HCPCS: 36415; 80053; 81003; 81015; 85027; 86593; 93005; 93010

== ENCOUNTER 2020-04-01 20:06 | Inpatient (IN) | payer OTHER ==
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
[2020-04-01] MEDS ORDERED: BISMUTH SUBSALICYLATE 524 MG/30 ML UD PO PRN (21:12)
[2020-04-01] MEDS ORDERED: IBUPROFEN 400 MG TABLET (FP) PO PRN (21:12)
[2020-04-01] MEDS ORDERED: P-EPHED 60MG/TRIPROLIDI 2.5MG TABLET PO PRN (21:12)
[2020-04-01] MEDS ORDERED: NICOTINE POLACRILEX 2 MG GUM BUC PRN (21:12)
[2020-04-01] MEDS ORDERED: METHOCARBAMOL 500 MG TABLET PO PRN (21:12)
[2020-04-01] MEDS ORDERED: MAG HYDROX/AL HYDROX/SIMETH 30 ML UNIT-DOSE CUP PO PRN (21:12)
[2020-04-01] MEDS ORDERED: ACETAMINOPHEN 325 MG TABLET (FP) PO PRN ×2 (21:12)
[2020-04-01] MEDS ORDERED: guaiFENesin 200 MG/10 ML 10 ML UNIT-DOSE CUPS PO PRN (21:12)
[2020-04-01] MEDS ORDERED: MAGNESIUM HYDROX 2400MG/30ML ORAL SUSPENSION 30 ML CUP PO PRN (21:12)
[2020-04-01] MEDS ORDERED: ONDANSETRON *ODT* 4 MG TABLET SL ONE (21:12)
[2020-04-01] MEDS ORDERED: MAGNESIUM CITRATE 300 ML BOTTLE PO PRN (21:12)
[2020-04-01] MEDS ORDERED: MENTHOL/PHENOL 1 EACH UD MM PRN (21:12)
[2020-04-01 21:33] VITALS: BMI 20.2
[2020-04-01] MEDS ORDERED: hydrOXYzine PAMOATE 25 MG CAPSULE (FP) PO SCH (22:00)
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
[2020-04-02] MEDS ORDERED: NALOXONE HCL 0.4 MG/ML VIAL IM PRN (03:48)
--- NOTE | 2020-04-02 03:58 | PN ---
BHS COWS - Scale Resting Pulse: 0= [place] 80 or Below Sweatin=Flushed/Facial Moisture Restless Observation: 0= Sits Still Pupil Size: 2= Moderately Dilated Bone or Joint Aches: 4=Acute Joint/Muscle Pain Runny Nose/ Eye Tearin= None GI Upset > 30mins: 0= None Tremor Observation of Outstretched Hands: 2= Slight Tremor Visible Yawning Observation: 0= None Anxiety or Irritability: 2=Irritable/Anxious Goose Flesh Skin: 0=Smooth Skin COWS Score: 12 BHS Progress Note (SOAP) Subjective: C/O SHAKES, CHILLS, IRRITABLE, Objective: 04/02/20 07:39 A/O X3 IRRITBALE ABOUT PAIN TO HAND SKIN- FLUSHED, MOIST EXTREMITIES- SLIGHT TREMORS TO LEFT HAND. Assessment: 04/02/20 07:41 OPIATE WITHDRAWAL R HAND FX Plan: START METHADONE TAPER TYLENOL/ MOTRIN FOR PAIN ORDERED. CONT TO MONITOR CLINICALLY
[2020-04-02] MEDS: MELATONIN 5 MG TABLETS PO SCH ×2 (04:51→22:40)
[2020-04-02] MEDS: THIAMINE HCL 100 MG TABLET (FP) PO SCH ×2 (04:58→22:51)
--- NOTE | 2020-04-02 09:12 | EKG ---
Test Reason : Blood Pressure : / mmHG Vent. Rate : 053 BPM Atrial Rate : 053 BPM P-R Int : 180 ms QRS Dur : 092 ms QT Int : 448 ms P-R-T Axes : 065 080 053 degrees QTc Int : 420 ms SINUS BRADYCARDIA WITH SINUS ARRHYTHMIA OTHERWISE NORMAL ECG WHEN COMPARED WITH ECG OF 03-JAN-2018 02:07, NO SIGNIFICANT CHANGE WAS FOUND Confirmed by Juanito Hodges ([id number]) on 04/02/2020 9:11:44 AM Referred By: Seng Geller Confirmed By:Juanito Hodges
[2020-04-02] MEDS ORDERED: METHADONE HCL 10 MG TABLET (FOR DETOX USE ONLY) PO ONE (10:00)
[2020-04-02] MEDS: NICOTINE 14 MG/24 HOURS TOPICAL PATCH TD SCH (10:27)
[2020-04-02] MEDS: PRENATAL VITAMINS W/ FOLIC ACID TABLET (FP) PO SCH (10:27)
--- NOTE | 2020-04-02 11:21 | PN ---
BHS COWS - Scale Resting Pulse: 0= [place] 80 or Below Sweatin= Chills/Flushing Restless Observation: 1= Difficult to Sit Still Pupil Size: 0= Normal to Room Light Bone or Joint Aches: 2= Severe Diffuse Aches Runny Nose/ Eye Tearin= Nasal Congestion GI Upset > 30mins: 0= None Tremor Observation of Outstretched Hands: 1= Tremor [place], Not Seen Yawning Observation: 1= 1-2x During Session Anxiety or Irritability: 2=Irritable/Anxious Goose Flesh Skin: 0=Smooth Skin COWS Score: 9 BHS Progress Note (SOAP) Subjective: body aches sweats shakes interrupted sleep right hand pain Objective: 04/02/20 14:29 Vital Signs Temperature 97.3 F L 04/02/20 05:48 Pulse Rate 68 04/02/20 05:48 Respiratory Rate 20 04/02/20 05:48 Blood Pressure 102/52 L 04/02/20 05:48 O2 Sat by Pulse Oximetry (%) 98 04/02/20 05:48 Laboratory Tests 04/02/20 04/02/20 04/02/20 08:00 08:00 08:00 WBC 4.3 RBC 4.90 Hgb 11.0 L Hct 35.2 L MCV 71.8 L MCH 22.4 L MCHC 31.2 L RDW 15.2 Plt Count 158 D MPV 9.4 Sodium 143 Potassium 4.1 Chloride 109 H Carbon Dioxide 31 Anion Gap 3 L BUN 12.0 Creatinine 0.9 Est GFR (CKD-EPI)AfAm 127.80 Est GFR (CKD-EPI)NonAf 110.27 Random Glucose 100 Calcium 8.7 Total Bilirubin 0.7 AST 37 ALT 32 Alkaline Phosphatase 55 Total Protein 5.5 L Albumin 2.8 L Syphilis Serology Non-reactive aaox3 lying in bed labs noted no acute distress Assessment: 04/02/20 14:29 withdrawals right hand swelling d/t hand injury prior to admission. this was evaluation at [facility] prior to admission to detox. Plan: continue detox increase fluids [place] bandage to apply on right hand prn motrin 800mg prn
[2020-04-02 12:00] LABS: ALBUMIN 2.8 g/dl (3.4-5.0); CALCIUM 8.7 mg/dL (8.5-10.1); POTASSIUM 4.1 mmol/L (3.5-5.1)
[2020-04-02 12:05] LABS: BILIRUBIN,TOTAL 0.7 mg/dL (0.2-1); CREATININE 0.9 mg/dL (0.55-1.3); TOT PROT 5.5 g/dl (6.4-8.2)
[2020-04-02 12:10] LABS: HEMATOCRIT 35.2 % (35.4-49); MCH 22.4 pg (25.7-33.7); MCHC 31.2 g/dl (32.0-35.9); MEAN CELL VOLUME 71.8 fl (80-96); MEAN PLT VOLUME 9.4 fl (7.5-11.1); PLATELET COUNT 158 K/MM3 (134-434); RDW 15.2 % (11.9-15.9); WHITE BLOOD COUNT 4.3 K/mm3 (4.0-10.0)
[2020-04-02] MEDS ORDERED: IBUPROFEN 400 MG TABLET (FP) PO PRN (14:31)
--- NOTE | 2020-04-02 17:20 | CONSULT ---
[facility] Psychiatric Consult - Data Date of interview: 04/02/20 Admission source: [facility] Identifying data: Bedside visit. For psychiatric evaluation. Mr Greenberg is in bed. Awake. Patient is informed of the purpose of visit. Declines to answer questions. " I don't want to talk to psychiatrists." No eye contact. Patient kept his back turned toward MD. Nursing staff is informed of patient's decision not to cooperate for psychiatric evaluation.
[2020-04-02] MEDS: DICYCLOMINE HCL 10 MG CAPSULE PO PRN (22:40)
[2020-04-02] MEDS ORDERED: TRIMETHOBENZAMIDE HCL 200MG/2ML INJ IM ONE (23:05)
--- NOTE | 2020-04-02 23:08 | PN ---
S Progress Note Note: Patient vomited x 1. Vital Signs Temperature 98.2 F 04/02/20 17:06 Pulse Rate 50 L 04/02/20 17:06 Respiratory Rate 18 04/02/20 17:06 Blood Pressure 148/67 04/02/20 17:06 O2 Sat by Pulse Oximetry (%) 100 04/02/20 12:58 Action: Tigan 200mg IM ordered
[2020-04-03] MEDS ORDERED: METHADONE HCL 10 MG TABLET (FOR DETOX USE ONLY) PO ONE (10:00)
[2020-04-03] MEDS: PRENATAL VITAMINS W/ FOLIC ACID TABLET (FP) PO SCH (11:24)
[2020-04-03] MEDS: NICOTINE 14 MG/24 HOURS TOPICAL PATCH TD SCH (11:24)
[2020-04-03] MEDS ORDERED: TRIMETHOBENZAMIDE HCL 300 MG CAPSULE PO PRN (11:44)
[2020-04-03] MEDS ORDERED: TRIMETHOBENZAMIDE HCL 200MG/2ML INJ IM PRN (11:45)
--- NOTE | 2020-04-03 11:47 | PN ---
BHS COWS - Scale Resting Pulse: 0= [place] 80 or Below Sweatin= Chills/Flushing Restless Observation: 1= Difficult to Sit Still Pupil Size: 0= Normal to Room Light Bone or Joint Aches: 1= Mild Discomfort Runny Nose/ Eye Tearin= None GI Upset > 30mins: 3= Vomiting/Diarrhea Tremor Observation of Outstretched Hands: 1= Tremor [place], Not Seen Yawning Observation: 1= 1-2x During Session Anxiety or Irritability: 1=Feels Anxious/Irritable Goose Flesh Skin: 0=Smooth Skin COWS Score: 9 BHS Progress Note (SOAP) Subjective: nausea body aches sweats Objective: 04/03/20 11:46 Vital Signs Temperature 97.5 F L 04/02/20 21:34 Pulse Rate 75 04/02/20 21:34 Respiratory Rate 18 04/02/20 21:34 Blood Pressure 115/74 04/02/20 21:34 O2 Sat by Pulse Oximetry (%) 98 04/02/20 21:34 Laboratory Tests 04/01/20 04/02/20 04/02/20 08:00 08:00 08:00 WBC 4.3 RBC 4.90 Hgb 11.0 L Hct 35.2 L MCV 71.8 L MCH 22.4 L MCHC 31.2 L RDW 15.2 Plt Count 158 D MPV 9.4 Sodium Potassium Chloride Carbon Dioxide Anion Gap BUN Creatinine Est GFR (CKD-EPI)AfAm Est GFR (CKD-EPI)NonAf Random Glucose Calcium Total Bilirubin AST ALT Alkaline Phosphatase Total Protein Albumin Syphilis Serology Non-reactive COVID-19 (MIGUEL) Not detected 04/02/20 08:00 WBC RBC Hgb Hct MCV MCH MCHC RDW Plt Count MPV Sodium 143 Potassium 4.1 Chloride 109 H Carbon Dioxide 31 Anion Gap 3 L BUN 12.0 Creatinine 0.9 Est GFR (CKD-EPI)AfAm 127.80 Est GFR (CKD-EPI)NonAf 110.27 Random Glucose 100 Calcium 8.7 Total Bilirubin 0.7 AST 37 ALT 32 Alkaline Phosphatase 55 Total Protein 5.5 L Albumin 2.8 L Syphilis Serology COVID-19 (MIGUEL) aaox3 lying in bed no acute distress Assessment: 04/03/20 11:46 withdrawals Plan: continue detox increase fluids tigan po and IM prn ordered. pt may choose
[2020-04-03] MEDS: diazePAM 5 MG TABLET PO PRN ×2 (14:28→20:11)
[2020-04-03] MEDS: DICYCLOMINE HCL 10 MG CAPSULE PO PRN (14:30)
[2020-04-03 23:19] VITALS: TEMP 98.1
[2020-04-03] MEDS: MELATONIN 5 MG TABLETS PO SCH (23:25)
[2020-04-03] MEDS: THIAMINE HCL 100 MG TABLET (FP) PO SCH (23:25)
[2020-04-04 06:30] VITALS: BP 134/64; PULSE 98
--- NOTE | 2020-04-04 06:50 | DS ---
[facility] Detox Discharge Summary Admission Date: 04/01/20 Discharge Date: 04/04/20 - History Additional Comments: Patient is leaving against medical advice. He is on methadone regimen and reports that the dose of methadone he is getting is not helpful and that this detox is not working for him. Risks and consequences of his action reinforced and patient verbalized understanding. He is alert and oriented x 3, in no acute distress at this time, ambulates independently and vital signs stable. Pertinent Past History: Opioid dependence Cannabis dependence Cocaine dependence Asthma Nicotine dependence PCP dependence IVDU - Physical Exam Results Vital Signs: Vital Signs Temperature 98.1 F 04/04/20 05:35 Pulse Rate 98 H 04/04/20 05:35 Respiratory Rate 16 04/04/20 05:35 Blood Pressure 134/64 04/04/20 05:35 O2 Sat by Pulse Oximetry (%) 95 04/04/20 05:35 Laboratory Last Values WBC 4.3 K/mm3 (4.0-10.0) 04/02/20 08:00 RBC 4.90 M/mm3 (4.00-5.60) 04/02/20 08:00 Hgb 11.0 GM/dL (11.7-16.9) L 04/02/20 08:00 Hct 35.2 % (35.4-49) L 04/02/20 08:00 MCV 71.8 fl (80-96) L 04/02/20 08:00 MCH 22.4 pg (25.7-33.7) L 04/02/20 08:00 MCHC 31.2 g/dl (32.0-35.9) L 04/02/20 08:00 RDW 15.2 % (11.9-15.9) 04/02/20 08:00 Plt Count 158 K/MM3 (134-434) D 04/02/20 08:00 MPV 9.4 fl (7.5-11.1) 04/02/20 08:00 Sodium 143 mmol/L (136-145) 04/02/20 08:00 Potassium 4.1 mmol/L (3.5-5.1) 04/02/20 08:00 Chloride 109 mmol/L (98-107) H 04/02/20 08:00 Carbon Dioxide 31 mmol/L (21-32) 04/02/20 08:00 Anion Gap 3 MMOL/L (8-16) L 04/02/20 08:00 BUN 12.0 mg/dL (7-18) 04/02/20 08:00 Creatinine 0.9 mg/dL (0.55-1.3) 04/02/20 08:00 Est GFR (CKD-EPI)AfAm 127.80 04/02/20 08:00 Est GFR (CKD-EPI)NonAf 110.27 04/02/20 08:00 Random Glucose 100 mg/dL (74-106) 04/02/20 08:00 Calcium 8.7 mg/dL (8.5-10.1) 04/02/20 08:00 Total Bilirubin 0.7 mg/dL (0.2-1) 04/02/20 08:00 AST 37 U/L (15-37) 04/02/20 08:00 ALT 32 U/L (13-61) 04/02/20 08:00 Alkaline Phosphatase 55 U/L (45-117) 04/02/20 08:00 Total Protein 5.5 g/dl (6.4-8.2) L 04/02/20 08:00 Albumin 2.8 g/dl (3.4-5.0) L 04/02/20 08:00 Syphilis Serology Non-reactive (NONREACTIVE) 04/02/20 08:00 COVID-19 (MIGUEL) Not detected (Not Detected) 04/01/20 08:00 Labs reviewed Pertinent Admission Physical Exam Findings: Opioid withdrawal symptoms - Diagnosis (1) Cannabis dependence Status: Chronic (2) Cocaine dependence Status: Chronic Qualifiers: Substance use status: uncomplicated Qualified Code(s): F14.20 - Cocaine dependence, uncomplicated (3) IVDU (intravenous drug user) Status: Chronic (4) Opioid dependence with current use Status: Chronic (5) Asthma Status: Chronic Qualifiers: Asthma severity: mild Asthma persistence: intermittent Asthma complication type: uncomplicated Qualified Code(s): J45.20 - Mild intermittent asthma, uncomplicated (6) Nicotine dependence Status: Chronic Qualifiers: Nicotine product type: cigarettes Substance use status: uncomplicated Qualified Code(s): F17.210 - Nicotine dependence, cigarettes, uncomplicated (7) Drug-induced mood disorder Status: Chronic (8) Cocaine abuse Status: Chronic (9) PCP (phencyclidine) abuse Status: Chronic (10) Uncomplicated sedative, hypnotic or anxiolytic withdrawal Status: Chronic (11) Anxiety and depression Status: Chronic - AMA Did Patient Leave Against Medical Advice: Yes
[2020-04-04] MEDS ORDERED: METHADONE HCL 10 MG TABLET (FOR DETOX USE ONLY) PO ONE (10:00)
[2020-04-05] MEDS ORDERED: METHADONE (DETOX) 10 MG, METHADONE (DETOX) 5 MG PO ONE (10:00)
[2020-04-06] MEDS ORDERED: METHADONE HCL 10 MG TABLET (FOR DETOX USE ONLY) PO ONE (10:00)
[2020-04-07] MEDS ORDERED: METHADONE HCL 5 MG TABLET (FOR DETOX USE ONLY) PO ONE (06:00)
== END 2020-04-04 07:43 | disposition left against medical advice (07) | DRG 770 ==
LOC: YASAS 20:06 → Y6N 21:24
PROVIDERS: ADMIT Allergy & Immunology; ATTEND Allergy & Immunology
PROC: HZ2ZZZZ Detoxification Services for Substance Abuse Treatment (ICD-10-PCS; principal; 2020-04-01)
DX: F11.23 Opioid dependence with withdrawal (principal); F14.20 Cocaine dependence, uncomplicated; F13.230 Sedative, hypnotic or anxiolytic dependence with withdrawal, uncomplicated; F12.20 Cannabis dependence, uncomplicated; F14.10 Cocaine abuse, uncomplicated; F17.210 Nicotine dependence, cigarettes, uncomplicated; F19.24 Other psychoactive substance dependence with psychoactive substance-induced mood disorder; F41.9 Anxiety disorder, unspecified; F32.9 Major depressive disorder, single episode, unspecified; J45.20 Mild intermittent asthma, uncomplicated; S62.91XG Unspecified fracture of right hand, subsequent encounter for fracture with delayed healing; X58.XXXD Exposure to other specified factors, subsequent encounter; Z59.0 Homelessness
CPT/HCPCS: 36415; 73110-TC-RT-FY; 73130-TC-RT-FY; 80053; 85027; 86780; 93005; 93010; U0003

== ENCOUNTER 2020-04-01 21:59 | Emergency (ER) | payer OTHER ==
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
[2020-04-01] MEDS ORDERED: LACTATED RINGERS SOLUTION 1000 ML INFUS.BAG IV ONE (22:21)
[2020-04-01] MEDS ORDERED: ACETAMINOPHEN 1000 MG/100 ML VIAL (NON FORMULARY) IVPB ONE (22:22)
[2020-04-01 22:24] VITALS: BMI 22.4
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
[2020-04-01] MEDS ORDERED: ACETAMINOPHEN INJECTION 100 ML IVPB ONE (23:02)
[2020-04-02 01:44] VITALS: BP 97/63; PULSE 62; TEMP 97.3
== END 2020-04-02 03:00 | disposition home or self-care (01) ==
LOC: JER 21:59
DX: F11.20 Opioid dependence, uncomplicated (principal); S69.91XA Unspecified injury of right wrist, hand and finger(s), initial encounter
CPT/HCPCS: 70450-TC; 70486-TC; 72125-TC; 73090-TC-RT-FY; 73110-TC-RT-FY; 73130-TC-RT-FY; 82962; 99285-25; J0131

== ENCOUNTER 2020-07-26 12:49 | Inpatient (IN) | payer OTHER ==
[2020-07-26] MEDS ORDERED: IBUPROFEN 400 MG TABLET (FP) PO PRN (16:42)
[2020-07-26] MEDS ORDERED: hydrOXYzine PAMOATE 25 MG CAPSULE (FP) PO PRN (16:42)
[2020-07-26] MEDS ORDERED: MAGNESIUM CITRATE 300 ML BOTTLE PO PRN (16:42)
[2020-07-26] MEDS ORDERED: NICOTINE POLACRILEX 2 MG GUM BUC PRN (16:42)
[2020-07-26] MEDS ORDERED: MENTHOL/PHENOL 1 EACH UD MM PRN (16:42)
[2020-07-26] MEDS ORDERED: MELATONIN 5 MG TABLETS PO PRN (16:42)
[2020-07-26] MEDS ORDERED: BISMUTH SUBSALICYLATE 524 MG/30 ML UD PO PRN (16:42)
[2020-07-26] MEDS ORDERED: MAGNESIUM HYDROX 2400MG/30ML ORAL SUSPENSION 30 ML CUP PO PRN (16:42)
[2020-07-26] MEDS ORDERED: METHOCARBAMOL 500 MG TABLET PO PRN (16:42)
[2020-07-26] MEDS ORDERED: MAG HYDROX/AL HYDROX/SIMETH 30 ML UNIT-DOSE CUP PO PRN (16:42)
[2020-07-26] MEDS ORDERED: ACETAMINOPHEN 325 MG TABLET (FP) PO PRN ×2 (16:42)
[2020-07-26] MEDS ORDERED: chlordiazePOXIDE HCL 25 MG CAPSULE PO PRN (16:44)
[2020-07-26 16:45] VITALS: BMI 21.8
[2020-07-26] MEDS: PRENATAL VITAMINS W/ FOLIC ACID TABLET (FP) PO SCH (20:13)
[2020-07-26] MEDS: chlordiazePOXIDE HCL 25 MG CAPSULE PO SCH (20:14)
[2020-07-26] MEDS: THIAMINE HCL 100 MG TABLET (FP) PO SCH (22:19)
[2020-07-26] MEDS ORDERED: METHADONE HCL 10 MG TABLET (FOR DETOX USE ONLY) PO ONE (23:00)
[2020-07-27] MEDS: chlordiazePOXIDE HCL 25 MG CAPSULE PO SCH ×5 (00:09→22:46)
[2020-07-27] MEDS: ONDANSETRON *ODT* 4 MG TABLET SL PRN (09:17)
[2020-07-27] MEDS ORDERED: METHADONE HCL 5 MG TABLET (FOR DETOX USE ONLY) ONE (09:22)
[2020-07-27] MEDS ORDERED: METHADONE HCL 10 MG TABLET (FOR DETOX USE ONLY) ONE (09:22)
[2020-07-27] MEDS ORDERED: METHADONE (DETOX) 20 MG, METHADONE (DETOX) 5 MG PO ONE (10:00)
[2020-07-27 10:04] LABS: POTASSIUM 4.6 mmol/L (3.5-5.1)
[2020-07-27 10:11] LABS: ALBUMIN 3.4 g/dl (3.4-5.0); BLOOD UREA NITROGEN 18.1 mg/dL (7-18)
[2020-07-27 10:13] LABS: BILIRUBIN,TOTAL 0.5 mg/dL (0.2-1); CREATININE 0.9 mg/dL (0.55-1.3)
[2020-07-27 10:14] LABS: TOT PROT 6.6 g/dl (6.4-8.2)
[2020-07-27 10:35] LABS: HEMATOCRIT 36.5 % (35.4-49); HEMOGLOBIN 11.9 GM/dL (11.7-16.9); MCH 23.7 pg (25.7-33.7); MCHC 32.6 g/dl (32.0-35.9); MEAN CELL VOLUME 72.5 fl (80-96); MEAN PLT VOLUME 8.9 fl (7.5-11.1); PLATELET COUNT 187 K/MM3 (134-434); RBC 5.04 M/mm3 (4.00-5.60); RDW 16.2 % (11.9-15.9); WHITE BLOOD COUNT 5.6 K/mm3 (4.0-10.0)
[2020-07-27] MEDS: PRENATAL VITAMINS W/ FOLIC ACID TABLET (FP) PO SCH (11:42)
[2020-07-27] MEDS: THIAMINE HCL 100 MG TABLET (FP) PO SCH (22:46)
[2020-07-28] MEDS: chlordiazePOXIDE HCL 25 MG CAPSULE PO SCH ×4 (07:23→23:05)
[2020-07-28] MEDS: ONDANSETRON *ODT* 4 MG TABLET SL PRN ×2 (07:24→18:26)
[2020-07-28] MEDS ORDERED: TRIMETHOBENZAMIDE HCL 200MG/2ML INJ IM ONE (08:00)
[2020-07-28] MEDS ORDERED: METHADONE HCL 10 MG TABLET (FOR DETOX USE ONLY) PO ONE (10:00)
[2020-07-28] MEDS: PRENATAL VITAMINS W/ FOLIC ACID TABLET (FP) PO SCH (10:03)
[2020-07-28] MEDS ORDERED: TRIMETHOBENZAMIDE HCL 200MG/2ML INJ IM PRN (18:35)
[2020-07-28] MEDS: THIAMINE HCL 100 MG TABLET (FP) PO SCH (23:05)
[2020-07-29] MEDS ORDERED: chlordiazePOXIDE HCL 10 MG CAPSULE PO PRN
[2020-07-29] MEDS: ONDANSETRON *ODT* 4 MG TABLET SL PRN (04:52)
[2020-07-29] MEDS ORDERED: chlordiazePOXIDE HCL 10 MG CAPSULE PO SCH (05:00)
[2020-07-29 09:59] VITALS: BP 130/79; PULSE 97; TEMP 97.7
[2020-07-29] MEDS ORDERED: METHADONE (DETOX) 10 MG, METHADONE (DETOX) 5 MG PO ONE (10:00)
[2020-07-30] MEDS ORDERED: chlordiazePOXIDE HCL 10 MG CAPSULE PO SCH (05:00)
[2020-07-30] MEDS ORDERED: METHADONE HCL 10 MG TABLET (FOR DETOX USE ONLY) PO ONE (10:00)
[2020-07-31] MEDS ORDERED: chlordiazePOXIDE HCL 10 MG CAPSULE PO ONE (05:00)
[2020-07-31] MEDS ORDERED: METHADONE HCL 5 MG TABLET (FOR DETOX USE ONLY) PO ONE (06:00)
== END 2020-07-29 09:54 | disposition left against medical advice (07) | DRG 770 ==
LOC: YASAS 12:49 → Y6N 18:07
PROVIDERS: ADMIT Allergy & Immunology; ATTEND Allergy & Immunology
PROC: HZ2ZZZZ Detoxification Services for Substance Abuse Treatment (ICD-10-PCS; principal; 2020-07-26)
DX: F11.23 Opioid dependence with withdrawal (principal); F13.230 Sedative, hypnotic or anxiolytic dependence with withdrawal, uncomplicated; F12.20 Cannabis dependence, uncomplicated; F17.210 Nicotine dependence, cigarettes, uncomplicated; F43.10 Post-traumatic stress disorder, unspecified; F32.9 Major depressive disorder, single episode, unspecified; J45.909 Unspecified asthma, uncomplicated; R63.4 Abnormal weight loss; Z68.21 Body mass index [BMI] 21.0-21.9, adult; Z87.828 Personal history of other (healed) physical injury and trauma
CPT/HCPCS: 36415; 80053; 84520; 85027; 86780; C9803; Q0162; U0003

== ENCOUNTER 2020-11-02 13:54 | Inpatient (IN) | payer OTHER ==
[2020-11-02 15:33] VITALS: BMI 23.1
[2020-11-02] MEDS ORDERED: METHOCARBAMOL 500 MG TABLET PO PRN (18:00)
[2020-11-02] MEDS ORDERED: MAGNESIUM CITRATE 300 ML BOTTLE PO PRN (18:00)
[2020-11-02] MEDS ORDERED: BISMUTH SUBSALICYLATE 524 MG/30 ML UD PO PRN (18:00)
[2020-11-02] MEDS ORDERED: hydrOXYzine PAMOATE 25 MG CAPSULE (FP) PO PRN (18:00)
[2020-11-02] MEDS ORDERED: MAG HYDROX/AL HYDROX/SIMETH 30 ML UNIT-DOSE CUP PO PRN (18:00)
[2020-11-02] MEDS ORDERED: MAGNESIUM HYDROX 2400MG/30ML ORAL SUSPENSION 30 ML CUP PO PRN (18:00)
[2020-11-02] MEDS ORDERED: ONDANSETRON *ODT* 4 MG TABLET SL PRN (18:00)
[2020-11-02] MEDS ORDERED: diazePAM 5 MG TABLET PO PRN (18:00)
[2020-11-02] MEDS ORDERED: MENTHOL/PHENOL 1 EACH UD MM PRN (18:00)
[2020-11-02] MEDS ORDERED: ACETAMINOPHEN 325 MG TABLET (FP) PO PRN ×2 (18:00)
[2020-11-02] MEDS ORDERED: NICOTINE POLACRILEX 2 MG GUM BUC PRN (18:00)
[2020-11-02] MEDS ORDERED: IBUPROFEN 400 MG TABLET (FP) PO PRN (18:00)
[2020-11-02] MEDS ORDERED: MELATONIN 5 MG TABLETS PO SCH (22:00)
[2020-11-02] MEDS ORDERED: BACITRACIN 0.9 GM PACKET TP SCH (22:00)
[2020-11-02] MEDS ORDERED: THIAMINE HCL 100 MG TABLET (FP) PO SCH (22:00)
[2020-11-03] MEDS: diazePAM 5 MG TABLET PO SCH ×2 (00:01→05:20)
[2020-11-03] MEDS ORDERED: METHADONE 120 MG, METHADONE 10 MG PO SCH (08:45)
[2020-11-03] MEDS ORDERED: METHADONE HCL 40 MG DISPERSABLE TABLET PO SCH (08:45)
[2020-11-03] MEDS ORDERED: METHADONE HCL 10 MG TABLET ONE (08:46)
[2020-11-03] MEDS ORDERED: METHADONE HCL 40 MG DISPERSABLE TABLET ONE (08:47)
[2020-11-03 09:45] VITALS: BP 102/73; PULSE 91; TEMP 98.7
[2020-11-03] MEDS ORDERED: PRENATAL VITAMINS W/ FOLIC ACID TABLET (FP) PO SCH (10:00)
[2020-11-03] MEDS ORDERED: NICOTINE 7 MG/24 HOURS TOPICAL PATCH TD SCH (10:00)
[2020-11-03 10:48] LABS: HEMATOCRIT 39.6 % (35.4-49); MCH 23.6 pg (25.7-33.7); MCHC 32.8 g/dl (32.0-35.9); MEAN CELL VOLUME 72.1 fl (80-96); MEAN PLT VOLUME 8.5 fl (7.5-11.1); PLATELET COUNT 281 K/MM3 (134-434); RBC 5.49 M/mm3 (4.00-5.60); RDW 16.6 % (11.9-15.9); WHITE BLOOD COUNT 7.1 K/mm3 (4.0-10.0)
[2020-11-03 10:54] LABS: POTASSIUM 4.2 mmol/L (3.5-5.1)
[2020-11-03 11:03] LABS: CALCIUM 9.4 mg/dL (8.5-10.1)
[2020-11-03 11:04] LABS: BLOOD UREA NITROGEN 10.6 mg/dL (7-18)
[2020-11-03 11:06] LABS: CREATININE 1.1 mg/dL (0.55-1.3)
[2020-11-03 11:08] LABS: BILIRUBIN,TOTAL 1.2 mg/dL (0.2-1); TOT PROT 7.6 g/dl (6.4-8.2)
[2020-11-03 11:54] LABS: HIV INTERPRETATION NEGATIVE (NEGATIVE)
[2020-11-04] MEDS ORDERED: diazePAM 5 MG TABLET PO SCH (06:00)
[2020-11-05] MEDS ORDERED: diazePAM 5 MG TABLET PO SCH (06:00)
[2020-11-06] MEDS ORDERED: diazePAM 5 MG TABLET PO ONE (06:00)
== END 2020-11-03 09:14 | disposition left against medical advice (07) | DRG 770 ==
LOC: YASAS 13:54 → Y6N 18:52
PROVIDERS: ADMIT Allergy & Immunology; ATTEND Allergy & Immunology
PROC: HZ2ZZZZ Detoxification Services for Substance Abuse Treatment (ICD-10-PCS; principal; 2020-11-02)
DX: F13.230 Sedative, hypnotic or anxiolytic dependence with withdrawal, uncomplicated (principal); F11.20 Opioid dependence, uncomplicated; F12.20 Cannabis dependence, uncomplicated; F17.210 Nicotine dependence, cigarettes, uncomplicated; F41.9 Anxiety disorder, unspecified; F43.10 Post-traumatic stress disorder, unspecified; R26.89 Other abnormalities of gait and mobility; Z59.0 Homelessness
CPT/HCPCS: 36415; 80053; 85027; 86780; 87389; C9803; U0003

== ENCOUNTER 2022-06-11 04:47 | Emergency (ER) | payer OTHER ==
[2022-06-11 05:53] VITALS: BMI 16.7
[2022-06-11 08:47] VITALS: BP 132/95; PULSE 98; RESP 20; TEMP 97.7
== END 2022-06-11 09:15 | disposition home or self-care (01) ==
LOC: JER 04:47
DX: Z04.3 Encounter for examination and observation following other accident (principal); W19.XXXA Unspecified fall, initial encounter; Y92.9 Unspecified place or not applicable
CPT/HCPCS: 70450-TC; 72125-TC; 99284-25

== ENCOUNTER 2022-06-16 03:18 | Inpatient (IN) | payer OTHER ==
[2022-06-16 03:38] VITALS: BMI 22.1
[2022-06-16] MEDS ORDERED: ONDANSETRON *ODT* 4 MG TABLET SL PRN (09:19)
[2022-06-16] MEDS ORDERED: IBUPROFEN 400 MG TABLET (FP) PO PRN (09:19)
[2022-06-16] MEDS ORDERED: METHOCARBAMOL 500 MG TABLET PO PRN (09:19)
[2022-06-16] MEDS ORDERED: NICOTINE POLACRILEX 2 MG GUM BUC PRN (09:19)
[2022-06-16] MEDS ORDERED: MAG HYDROX/AL HYDROX/SIMETH 30 ML UNIT-DOSE CUP PO PRN (09:19)
[2022-06-16] MEDS ORDERED: BISMUTH SUBSALICYLATE 524 MG/30 ML PO PRN (09:19)
[2022-06-16] MEDS ORDERED: IBUPROFEN 600 MG TABLET (FP) PO PRN (09:19)
[2022-06-16] MEDS ORDERED: ACETAMINOPHEN 325 MG TABLET (FP) PO PRN ×2 (09:19)
[2022-06-16] MEDS ORDERED: BENZOCAINE/MENTHOL (CHLORASEPTIC ) LOZENGE MM PRN (09:19)
[2022-06-16] MEDS ORDERED: DICYCLOMINE HCL 10 MG CAPSULE PO PRN (09:19)
[2022-06-16] MEDS ORDERED: LOPERAMIDE HCL 2 MG CAPSULE PO PRN (09:19)
[2022-06-16] MEDS ORDERED: MAGNESIUM CITRATE 300 ML BOTTLE PO PRN (09:19)
[2022-06-16] MEDS ORDERED: NALOXONE HCL (KLOXXADO) 8 MG SPRAY NS PRN (09:19)
[2022-06-16] MEDS ORDERED: MAGNESIUM HYDROX 2400MG/30ML ORAL SUSPENSION 30 ML CUP PO PRN (09:19)
[2022-06-16] MEDS ORDERED: ALBUTEROL SO4 HFA INHALER IH PRN (09:29)
[2022-06-16] MEDS: PRENATAL VITAMINS W/ FOLIC ACID TABLET (FP) PO SCH (10:02)
[2022-06-16] MEDS: methaDONE HCL 40 MG DISPERSABLE TABLET PO SCH (11:40)
[2022-06-16] MEDS: NICOTINE 10 MG CARTRIDGE (INHALER) IH PRN ×2 (14:49→17:55)
[2022-06-16] MEDS ORDERED: chlordiazePOXIDE HCL 25 MG CAPSULE PO SCH (15:00)
[2022-06-16] MEDS: chlordiazePOXIDE HCL 25 MG CAPSULE PO SCH ×2 (17:53→22:44)
[2022-06-16] MEDS: hydrOXYzine PAMOATE 25 MG CAPSULE (FP) PO PRN ×2 (17:53→22:44)
[2022-06-16 18:48] LABS: HIV INTERPRETATION NEGATIVE (NEGATIVE)
[2022-06-16] MEDS ORDERED: THIAMINE HCL 100 MG TABLET (FP) PO SCH (22:00)
[2022-06-16] MEDS ORDERED: MELATONIN 5 MG TABLETS PO SCH (22:00)
[2022-06-17] MEDS: chlordiazePOXIDE HCL 10 MG CAPSULE PO SCH ×2 (05:31→10:23)
[2022-06-17] MEDS: methaDONE HCL 40 MG DISPERSABLE TABLET PO SCH (05:32)
[2022-06-17 09:46] VITALS: RESP 17
[2022-06-17] MEDS: PRENATAL VITAMINS W/ FOLIC ACID TABLET (FP) PO SCH (10:23)
[2022-06-17 13:04] VITALS: BP 115/73; PULSE 64; TEMP 97.8
[2022-06-17 14:20] LABS: HEMATOCRIT 41.5 % (35.4-49); MCH 23.2 pg (25.7-33.7); MCHC 31.2 g/dl (32.0-35.9); MEAN CELL VOLUME 74.2 fl (80-96); MEAN PLT VOLUME 9.6 fl (7.5-11.1); PLATELET COUNT 235 10^3/uL (134-434); RDW 16.6 % (11.9-15.9)
[2022-06-17 15:28] LABS: CALCIUM 9.4 mg/dL (8.5-10.1)
[2022-06-17 15:29] LABS: ALBUMIN 3.8 g/dl (3.4-5.0); BLOOD UREA NITROGEN 15.5 mg/dL (7-18)
[2022-06-17 15:32] LABS: CREATININE 0.8 mg/dL (0.55-1.3)
[2022-06-17 15:33] LABS: BILIRUBIN,TOTAL 0.4 mg/dL (0.2-1); TOT PROT 6.9 g/dl (6.4-8.2)
[2022-06-18] MEDS ORDERED: chlordiazePOXIDE HCL 10 MG CAPSULE PO SCH (05:00)
[2022-06-19] MEDS ORDERED: chlordiazePOXIDE HCL 10 MG CAPSULE PO ONE (05:00)
== END 2022-06-17 15:05 | disposition left against medical advice (07) | DRG 770 ==
LOC: YASAS 03:18 → Y6N 09:26
PROVIDERS: ADMIT Allergy & Immunology; ATTEND Surgery
PROC: HZ2ZZZZ Detoxification Services for Substance Abuse Treatment (ICD-10-PCS; principal; 2022-06-16)
DX: F10.230 Alcohol dependence with withdrawal, uncomplicated (principal); F11.20 Opioid dependence, uncomplicated; F16.20 Hallucinogen dependence, uncomplicated; F12.20 Cannabis dependence, uncomplicated; F17.210 Nicotine dependence, cigarettes, uncomplicated; F19.280 Other psychoactive substance dependence with psychoactive substance-induced anxiety disorder; F19.282 Other psychoactive substance dependence with psychoactive substance-induced sleep disorder; F43.10 Post-traumatic stress disorder, unspecified; R63.4 Abnormal weight loss; Z68.22 Body mass index [BMI] 22.0-22.9, adult; Z88.8 Allergy status to other drugs, medicaments and biological substances; Z56.0 Unemployment, unspecified; Z59.00 Homelessness unspecified
CPT/HCPCS: 36415; 80053; 85027; 86780; 87389; 87811; C9803-CS; U0003; U0005

== ENCOUNTER 2022-12-14 09:54 | Inpatient (IN) | payer OTHER ==
[2022-12-14 10:32] VITALS: RESP 18; BMI 25.0
[2022-12-14] MEDS ORDERED: VANCOMYCIN 1 GM in D5W (PRE-DOCKED) 1,000 MG/250 ML (RESTRICTED TO ID ONLY IVPB ONE (11:41)
[2022-12-14] MEDS ORDERED: VANCOMYCIN/WATER FOR INJ (PEG) 1,000 MG/200 ML BAG IVPB ONE (13:14)
[2022-12-14 13:42] LABS: INR 1.17 (0.83-1.09); PROTHROMBIN TIME (PATIENT) 13.5 SEC (9.7-13.0)
[2022-12-14 13:43] LABS: BASO % 0.2 % (0-2.0); EOS % 1.1 % (0-4.5); HEMATOCRIT 34.9 % (35.4-49); HEMOGLOBIN 11.6 GM/dL (11.7-16.9); MCH 24.1 pg (25.7-33.7); MCHC 33.3 g/dl (32.0-35.9); MEAN CELL VOLUME 72.1 fl (80-96); MEAN PLT VOLUME 9.1 fl (7.5-11.1); MONO % 13.6 % (3.8-10.2); NEUT % 65.1 % (42.8-82.8); PLATELET COUNT 151 10^3/uL (134-434); RBC 4.84 M/mm3 (4.00-5.60); RDW 15.6 % (11.9-15.9); WHITE BLOOD COUNT 6.9 K/mm3 (4.0-10.0)
[2022-12-14 13:45] LABS: ACTIVATED PTT 26.4 SECONDS (25.2-36.5)
[2022-12-14 14:24] LABS: ERYTHROCYTE SEDIMENTATION RATE 21 mm/hr (0-10)
[2022-12-14 14:33] LABS: POTASSIUM 4.3 mmol/L (3.5-5.1)
[2022-12-14 14:35] LABS: BLOOD UREA NITROGEN 8.3 mg/dL (7-18); CALCIUM 8.9 mg/dL (8.5-10.1)
[2022-12-14 14:36] LABS: ALBUMIN 3.3 g/dl (3.4-5.0)
[2022-12-14 14:39] LABS: CREATININE 0.9 mg/dL (0.55-1.3)
[2022-12-14 14:40] LABS: BILIRUBIN,TOTAL 0.5 mg/dL (0.2-1); TOT PROT 6.3 g/dl (6.4-8.2)
[2022-12-14] MEDS ORDERED: ACETAMINOPHEN 325 MG TABLET (FP) PO ONE (15:41)
[2022-12-14] MEDS ORDERED: ACETAMINOPHEN 325 MG TABLET (FP) ONE (15:56)
[2022-12-14] MEDS ORDERED: SODIUM CHLORIDE 1,000 ML IV STA (16:33)
[2022-12-14] MEDS ORDERED: ACETAMINOPHEN 500 MG TABLET (FP) PO ONE (23:03)
[2022-12-15] MEDS ORDERED: methaDONE HCL 10 MG TABLET PO SCH (06:00)
[2022-12-15 09:26] LABS: BASO % 0.5 % (0-2.0); EOS % 3.5 % (0-4.5); HEMATOCRIT 35.5 % (35.4-49); HEMOGLOBIN 11.6 GM/dL (11.7-16.9); LYMPH % 36.3 % (8-40); MCH 23.4 pg (25.7-33.7); MCHC 32.5 g/dl (32.0-35.9); MEAN CELL VOLUME 71.8 fl (80-96); MEAN PLT VOLUME 9.6 fl (7.5-11.1); MONO % 17.3 % (3.8-10.2); NEUT % 42.4 % (42.8-82.8); PLATELET COUNT 172 10^3/uL (134-434); RBC 4.95 M/mm3 (4.00-5.60); RDW 15.3 % (11.9-15.9); WHITE BLOOD COUNT 4.2 K/mm3 (4.0-10.0)
[2022-12-15 09:50] LABS: POTASSIUM 4.1 mmol/L (3.5-5.1)
[2022-12-15] MEDS ORDERED: ENOXAPARIN NA (PORCINE) 40 MG/0.4 ML DISP.SYRIN SQ SCH (10:00)
[2022-12-15 10:07] LABS: ALBUMIN 3.1 g/dl (3.4-5.0); BLOOD UREA NITROGEN 6.2 mg/dL (7-18); CALCIUM 8.6 mg/dL (8.5-10.1)
[2022-12-15 10:09] LABS: CREATININE 0.8 mg/dL (0.55-1.3)
[2022-12-15 10:10] LABS: BILIRUBIN,TOTAL 0.7 mg/dL (0.2-1); PHOSPHOROUS 2.9 mg/dL (2.5-4.9)
[2022-12-15 10:11] LABS: TOT PROT 5.9 g/dl (6.4-8.2)
[2022-12-15] MEDS ORDERED: methaDONE HCL 40 MG DISPERSABLE TABLET PO ONE (10:30)
[2022-12-15] MEDS ORDERED: VANCOMYCIN 1 GM/200 ML PREMIX BAG (RESTRICTED TO ID ONLY) IVPB SCH (11:00)
[2022-12-15] MEDS ORDERED: CEPHALEXIN MONOHYDRATE 500 MG CAPSULE (UD) PO SCH (12:15)
[2022-12-15 15:39] VITALS: BP 101/62; PULSE 77; TEMP 97.4
[2022-12-15] MEDS ORDERED: DOXYCYCLINE HYCLATE 100 MG CAPSULE PO SCH (18:00)
[2022-12-16] MEDS ORDERED: methaDONE HCL 40 MG DISPERSABLE TABLET PO SCH (06:00)
[2022-12-16] MEDS ORDERED: VANCOMYCIN 1 GM/200 ML PREMIX BAG (RESTRICTED TO ID ONLY) IVPB SCH (11:00)
== END 2022-12-15 18:49 | disposition left against medical advice (07) | DRG 383 ==
LOC: JER 09:54 → JERBED 15:13 → J5S 19:51
PROVIDERS: ADMIT Internal Medicine
DX: L03.116 Cellulitis of left lower limb (principal); L03.115 Cellulitis of right lower limb; F11.20 Opioid dependence, uncomplicated; F12.90 Cannabis use, unspecified, uncomplicated; F39 Unspecified mood [affective] disorder
CPT/HCPCS: 36415; 73610-TC-LT-FY; 73610-TC-RT-FY; 73630-TC-LT; 73630-TC-RT-FY; 80053; 81374; 82550; 82553; 83735; 83874; 83880; 84100; 84443; 85025; 85610; 85651; 85730; 86038; 86140; 87040; 99285-25; C9803-CS; U0003; U0005

== ENCOUNTER 2023-04-27 08:53 | Inpatient (IN) | payer OTHER ==
[2023-04-27 09:37] VITALS: BMI 22.1
[2023-04-27] MEDS ORDERED: hydrOXYzine PAMOATE 25 MG CAPSULE (FP) PO PRN (10:03)
[2023-04-27] MEDS ORDERED: LOPERAMIDE HCL 2 MG CAPSULE PO PRN (10:03)
[2023-04-27] MEDS ORDERED: BENZONATATE 200 MG CAPSULE PO PRN (10:03)
[2023-04-27] MEDS ORDERED: POLYETHYLENE GLYCOL (HEALTHYLAX) 3350 17 GM PACKET PO PRN (10:03)
[2023-04-27] MEDS ORDERED: BENZOCAINE/MENTHOL (CHLORASEPTIC ) LOZENGE MM PRN (10:03)
[2023-04-27] MEDS ORDERED: IBUPROFEN 400 MG TABLET (FP) PO PRN (10:03)
[2023-04-27] MEDS ORDERED: NALOXONE HCL 0.4 MG/ML VIAL IM PRN (10:03)
[2023-04-27] MEDS ORDERED: IBUPROFEN 600 MG TABLET (FP) PO PRN (10:03)
[2023-04-27] MEDS ORDERED: ACETAMINOPHEN 325 MG TABLET (FP) PO PRN (10:03)
[2023-04-27] MEDS ORDERED: NALOXONE HCL (KLOXXADO) 8 MG SPRAY NS PRN (10:03)
[2023-04-27] MEDS ORDERED: MAGNESIUM HYDROX 2400MG/30ML ORAL SUSPENSION 30 ML CUP PO PRN (10:03)
[2023-04-27] MEDS ORDERED: diazePAM 5 MG TABLET PO PRN (10:03)
[2023-04-27] MEDS ORDERED: MAG HYDROX/AL HYDROX/SIMETH 30 ML UNIT-DOSE CUP PO PRN (10:03)
[2023-04-27] MEDS ORDERED: ONDANSETRON *ODT* 4 MG TABLET SL PRN (10:03)
[2023-04-27] MEDS ORDERED: DICYCLOMINE HCL 10 MG CAPSULE PO PRN (10:03)
[2023-04-27] MEDS ORDERED: METHOCARBAMOL 500 MG TABLET PO PRN (10:03)
[2023-04-27] MEDS ORDERED: BISMUTH SUBSALICYLATE 524 MG/30 ML PO PRN (10:03)
[2023-04-27] MEDS ORDERED: guaiFENesin 600 MG TABLET.ER (FP) PO PRN (10:03)
[2023-04-27] MEDS: PRENATAL VITAMINS W/ FOLIC ACID TABLET (FP) PO SCH (11:50)
[2023-04-27] MEDS: diazePAM 5 MG TABLET PO SCH ×2 (17:37→22:18)
[2023-04-27] MEDS: THIAMINE HCL 100 MG TABLET (FP) PO SCH (22:18)
[2023-04-27] MEDS: MELATONIN 5 MG TABLETS PO SCH (22:18)
[2023-04-28] MEDS: diazePAM 5 MG TABLET PO SCH ×4 (05:38→22:20)
[2023-04-28] MEDS ORDERED: methaDONE HCL 10 MG TABLET PO SCH (06:00)
[2023-04-28] MEDS: PRENATAL VITAMINS W/ FOLIC ACID TABLET (FP) PO SCH (10:03)
[2023-04-28 10:42] LABS: HEMOGLOBIN 10.9 GM/dL (11.7-16.9); MCH 23.1 pg (25.7-33.7); MCHC 32.1 g/dl (32.0-35.9); MEAN PLT VOLUME 8.8 fl (7.5-11.1); PLATELET COUNT 162 10^3/uL (134-434); RBC 4.72 M/mm3 (4.00-5.60); RDW 17.2 % (11.9-15.9)
[2023-04-28 10:48] LABS: POTASSIUM 4.1 mmol/L (3.5-5.1)
[2023-04-28 10:49] LABS: CALCIUM 8.3 mg/dL (8.5-10.1)
[2023-04-28 10:50] LABS: ALBUMIN 3.2 g/dl (3.4-5.0); BLOOD UREA NITROGEN 16.8 mg/dL (7-18)
[2023-04-28 10:53] LABS: CREATININE 0.8 mg/dL (0.55-1.3)
[2023-04-28 10:55] LABS: BILIRUBIN,TOTAL 0.4 mg/dL (0.2-1); TOT PROT 5.7 g/dl (6.4-8.2)
[2023-04-28] MEDS: THIAMINE HCL 100 MG TABLET (FP) PO SCH (22:20)
[2023-04-28] MEDS: MELATONIN 5 MG TABLETS PO SCH (22:20)
[2023-04-29] MEDS: diazePAM 5 MG TABLET PO SCH ×2 (05:49→13:41)
[2023-04-29 08:56] VITALS: RESP 16
[2023-04-29] MEDS: PRENATAL VITAMINS W/ FOLIC ACID TABLET (FP) PO SCH (10:19)
[2023-04-29 13:25] VITALS: BP 94/60; PULSE 76; TEMP 98.5
[2023-04-30] MEDS ORDERED: diazePAM 5 MG TABLET PO SCH (06:00)
[2023-05-01] MEDS ORDERED: diazePAM 5 MG TABLET PO ONE (06:00)
== END 2023-04-29 13:22 | disposition left against medical advice (07) | DRG 770 ==
LOC: YASAS 08:53 → Y3N 10:12
PROVIDERS: ADMIT Surgery; ATTEND Allergy & Immunology
PROC: HZ2ZZZZ Detoxification Services for Substance Abuse Treatment (ICD-10-PCS; principal; 2023-04-27)
DX: F10.230 Alcohol dependence with withdrawal, uncomplicated (principal); F13.230 Sedative, hypnotic or anxiolytic dependence with withdrawal, uncomplicated; F11.20 Opioid dependence, uncomplicated; F14.20 Cocaine dependence, uncomplicated; F41.9 Anxiety disorder, unspecified; F43.10 Post-traumatic stress disorder, unspecified; Z87.891 Personal history of nicotine dependence; Z28.310 Unvaccinated for COVID-19; Z28.9 Immunization not carried out for unspecified reason; Z88.8 Allergy status to other drugs, medicaments and biological substances
CPT/HCPCS: 36415; 80053; 85027; 86780; 87635

== ENCOUNTER 2023-04-29 19:12 | Inpatient (IN) | payer OTHER ==
[2023-04-29 19:48] VITALS: BMI 22.4
[2023-04-29] MEDS ORDERED: MAGNESIUM HYDROX 2400MG/30ML ORAL SUSPENSION 30 ML CUP PO PRN (21:03)
[2023-04-29] MEDS ORDERED: ACETAMINOPHEN 325 MG TABLET (FP) PO PRN (21:03)
[2023-04-29] MEDS ORDERED: LOPERAMIDE HCL 2 MG CAPSULE PO PRN (21:03)
[2023-04-29] MEDS ORDERED: IBUPROFEN 600 MG TABLET (FP) PO PRN (21:03)
[2023-04-29] MEDS ORDERED: ONDANSETRON *ODT* 4 MG TABLET SL PRN (21:03)
[2023-04-29] MEDS ORDERED: MAG HYDROX/AL HYDROX/SIMETH 30 ML UNIT-DOSE CUP PO PRN (21:03)
[2023-04-29] MEDS ORDERED: POLYETHYLENE GLYCOL (HEALTHYLAX) 3350 17 GM PACKET PO PRN (21:03)
[2023-04-29] MEDS ORDERED: BISMUTH SUBSALICYLATE 524 MG/30 ML PO PRN (21:03)
[2023-04-29] MEDS ORDERED: BENZOCAINE/MENTHOL (CHLORASEPTIC ) LOZENGE MM PRN (21:03)
[2023-04-29] MEDS ORDERED: NALOXONE HCL 0.4 MG/ML VIAL IM PRN (21:03)
[2023-04-29] MEDS ORDERED: guaiFENesin 600 MG TABLET.ER (FP) PO PRN (21:03)
[2023-04-29] MEDS ORDERED: BENZONATATE 200 MG CAPSULE PO PRN (21:03)
[2023-04-29] MEDS ORDERED: IBUPROFEN 400 MG TABLET (FP) PO PRN (21:03)
[2023-04-29] MEDS ORDERED: DICYCLOMINE HCL 10 MG CAPSULE PO PRN (21:03)
[2023-04-29] MEDS ORDERED: NALOXONE HCL (KLOXXADO) 8 MG SPRAY NS PRN (21:03)
[2023-04-29] MEDS ORDERED: diazePAM 5 MG TABLET PO PRN (21:03)
[2023-04-29] MEDS ORDERED: diazePAM 5 MG TABLET ONE (21:36)
[2023-04-29] MEDS ORDERED: MELATONIN 5 MG TABLETS ONE (21:37)
[2023-04-29] MEDS: THIAMINE HCL 100 MG TABLET (FP) PO SCH (22:41)
[2023-04-29] MEDS: MELATONIN 5 MG TABLETS PO SCH (22:41)
[2023-04-29] MEDS: diazePAM 5 MG TABLET PO SCH (22:41)
[2023-04-30] MEDS: diazePAM 5 MG TABLET PO SCH ×3 (05:13→22:28)
[2023-04-30] MEDS ORDERED: methaDONE HCL 10 MG TABLET PO SCH (07:30)
[2023-04-30] MEDS: PRENATAL VITAMINS W/ FOLIC ACID TABLET (FP) PO SCH (10:15)
[2023-04-30] MEDS ORDERED: PNEUMOC 20-VAL CONJ-DIP CRM/PF 0.5 ML SYRINGE IM ONE (12:00)
[2023-04-30] MEDS: THIAMINE HCL 100 MG TABLET (FP) PO SCH (22:28)
[2023-04-30] MEDS: SUVOREXANT 5 MG TABLET PO PRN (22:29)
[2023-04-30] MEDS: MELATONIN 5 MG TABLETS PO SCH (22:55)
[2023-05-01] MEDS: diazePAM 5 MG TABLET PO SCH ×2 (09:37→22:16)
[2023-05-01] MEDS: PRENATAL VITAMINS W/ FOLIC ACID TABLET (FP) PO SCH (09:37)
[2023-05-01] MEDS: METHOCARBAMOL 500 MG TABLET PO PRN ×2 (12:33→22:15)
[2023-05-01] MEDS: MELATONIN 5 MG TABLETS PO SCH (22:15)
[2023-05-01] MEDS: THIAMINE HCL 100 MG TABLET (FP) PO SCH (22:15)
[2023-05-01] MEDS: SUVOREXANT 5 MG TABLET PO PRN (22:16)
[2023-05-02] MEDS ORDERED: diazePAM 5 MG TABLET PO ONE (06:00)
[2023-05-02 06:28] VITALS: RESP 18
[2023-05-02] MEDS: PRENATAL VITAMINS W/ FOLIC ACID TABLET (FP) PO SCH (10:02)
[2023-05-02 12:56] VITALS: BP 130/80; PULSE 84; TEMP 97.5
== END 2023-05-02 13:01 | disposition home or self-care (01) | DRG 773 ==
LOC: YASAS 19:12 → Y6N 21:22
PROVIDERS: ADMIT Allergy & Immunology; ATTEND Surgery
PROC: HZ2ZZZZ Detoxification Services for Substance Abuse Treatment (ICD-10-PCS; principal; 2023-04-29)
DX: F10.230 Alcohol dependence with withdrawal, uncomplicated (principal); F11.20 Opioid dependence, uncomplicated; F12.20 Cannabis dependence, uncomplicated; F43.10 Post-traumatic stress disorder, unspecified; G47.00 Insomnia, unspecified; I10 Essential (primary) hypertension; J45.20 Mild intermittent asthma, uncomplicated; R63.4 Abnormal weight loss; Z68.22 Body mass index [BMI] 22.0-22.9, adult; Z87.891 Personal history of nicotine dependence; Z28.310 Unvaccinated for COVID-19; Z28.9 Immunization not carried out for unspecified reason
CPT/HCPCS: 87635; 90677